=== PATIENT | female | born 1940 | race Caucasian/White ===

== ENCOUNTER 2024-05-28 11:22 | Inpatient (IN) | payer OTHER, SELFPAY ==
--- NOTE | 2024-05-26 10:11 | ED.MUSCINJ ---
HPI-Injury
<Fransico Purvis PA-C - Last Filed: 05/26/24 14:44>
General
Chief Complaint: Musculo-Skeletal Complaint
Time Seen by Provider: 05/26/24 09:55
History of Present Illness-Injury
Initial Injury comments:
Patient is an 84-year-old female with past medical history of atrial fibrillation, history of heart murmur, hypertension, hyperlipidemia, hearing impairment, and history of basal cell skin cancer, here today for evaluation of left knee pain that
began yesterday. Patient states yesterday she had her left lower extremity outstretched and fully extended while watching tennis on a table. She reports attempting to flex her knee in order to stand up and developed sudden onset of pain that has
been noted to be severe. She also reports difficulty with ambulation not able to flex her knee. She denies direct trauma. No fevers. No numbness or tingling. She has had a prior knee replacement approximately 8 years ago without previous issues.
Review of Systems
<Fransico Purvis PA-C - Last Filed: 05/26/24 14:44>
Review of Systems
All Other Systems: ROS reviewed and negative except as documented in HPI and ROS
Phy Exam
<Fransico Purvis PA-C - Last Filed: 05/26/24 14:44>
Physical Exam
Physical Exam:
GENERAL: Alert , in no apparent distress
EYE: pupils equal and reactive
NECK: Supple
NEUROLOGICAL: Alert and oriented, no focal neuro deficits
SKIN: Warm and dry, skin intact.
MUSCULOSKELETAL: No edema, well perfused. There is moderate tenderness to palpation along the entire left knee joint predominantly along the superior and anterior aspect, there is mild swelling, there are no deformities or step-offs appreciated,
there is extremely limited range of motion with inability to flex the left knee in any direction, there is no erythema or warmth, pulses 2+ throughout distally, no tenderness along the calf or thigh, sensation intact throughout
PSYCH: Normal and appropriate interaction.
Injury Course
<Fransico Purvis PA-C - Last Filed: 05/26/24 14:44>
Orders/Labs/Results
Orders:
Orders
05/26/24 09:50
CR Knee - Left 4 Or More View* Urgent
Comment:
Reason For Exam: pain
05/26/24 11:14
Venous Doppler Lwr Ext Left [US Periph Venous LOWER Ext LT] Urgent
Comment:
Reason For Exam: left lower extremity pain
05/26/24 14:08
Case Management Consult ONCE
Case Management Consult: Discharge Planning
Pt Eval And Treat Urgent
Activity Level: Ambulate
05/26/24 14:35
Basic Metabolic Panel Urgent
CRP [C-Reactive Protein] Urgent
Complete Blood Count/With Diff Urgent
ESR [Erythrocyte Sed Rate] Urgent
05/26/24 14:41
Admit/Transfer Patient As Directed
Co-Sign Provider:
Level of Care: Observation services
Assign to:: Medical/Surgical
Physician / Group: Courtney
Diagnosis: Left Knee Pain; Ambulatory Dysfunction
05/26/24 14:43
Code Status As Directed
Resuscitation Status: Full Code
Abnormal Lab Results
05/26/24
14:35
WBC 17.4 H 10^3/uL
(4.8-10.8)
MCH 32.8 H pg
(27.0-31.0)
Abs Immat Gran (auto) 0.1 H 10^3/uL
(0-0.05)
Absolute Neuts (auto) 14.8 H 10^3/uL
(1.4-6.5)
Absolute Lymphs (auto) 1.0 L 10^3/uL
(1.2-3.4)
Absolute Monos (auto) 1.5 H 10^3/uL
(0.1-0.6)
Neutrophils % 84.7 H %
(42.2-75.2)
Lymphocytes % 5.5 L %
(20.5-51.1)
Sodium 134 L mmol/L
(135-145)
Glucose 109 H mg/dl
(70-99)
C-Reactive Protein 203.80 H mg/L
(0.0-10.00)
05/26/24 14:35
05/26/24 14:35
<Maryann De Guzman MD - Last Filed: 05/26/24 15:57>
Orders/Labs/Results
Orders:
Orders
05/26/24 09:50
CR Knee - Left 4 Or More View* Urgent
Comment:
Reason For Exam: pain
05/26/24 11:14
Venous Doppler Lwr Ext Left [US Periph Venous LOWER Ext LT] Urgent
Comment:
Reason For Exam: left lower extremity pain
05/26/24 14:08
Case Management Consult ONCE
Case Management Consult: Discharge Planning
Pt Eval And Treat Urgent
Activity Level: Ambulate
05/26/24 14:35
Basic Metabolic Panel Urgent
CRP [C-Reactive Protein] Urgent
Complete Blood Count/With Diff Urgent
ESR [Erythrocyte Sed Rate] Urgent
05/26/24 14:41
Admit/Transfer Patient As Directed
Co-Sign Provider:
Level of Care: Observation services
Assign to:: Medical/Surgical
Physician / Group: Courtney
Diagnosis: Left Knee Pain; Ambulatory Dysfunction
05/26/24 14:43
Code Status As Directed
Resuscitation Status: Full Code
Abnormal Lab Results
05/26/24
14:35
WBC 17.4 H 10^3/uL
(4.8-10.8)
MCH 32.8 H pg
(27.0-31.0)
Abs Immat Gran (auto) 0.1 H 10^3/uL
(0-0.05)
Absolute Neuts (auto) 14.8 H 10^3/uL
(1.4-6.5)
Absolute Lymphs (auto) 1.0 L 10^3/uL
(1.2-3.4)
Absolute Monos (auto) 1.5 H 10^3/uL
(0.1-0.6)
Neutrophils % 84.7 H %
(42.2-75.2)
Lymphocytes % 5.5 L %
(20.5-51.1)
Sodium 134 L mmol/L
(135-145)
Glucose 109 H mg/dl
(70-99)
C-Reactive Protein 203.80 H mg/L
(0.0-10.00)
05/26/24 14:35
05/26/24 14:35
<Fransico Purvis PA-C - Last Filed: 05/26/24 14:44>
MDM/Problems Addressed
Differential Diagnosis Includes:
Patient is an 84-year-old female with past medical history of atrial fibrillation, history of heart murmur, hypertension, hyperlipidemia, hearing impairment, and history of basal cell skin cancer, here today for evaluation of left knee pain that
began yesterday. Overall, patient appears very well. Physical examination described above. Will begin with x-rays.
05/26/2024 14:10: X-ray negative. Hardware in place. Ultrasound was obtained of the left lower extremity which reveals no evidence of DVT. Patient still in a significant amount of discomfort and not able to ambulate. Given these findings, we
will have care management and PT/OT evaluate patient at bedside. I do not have a high suspicion for septic arthropathy at this time, however, we will obtain screening labs including ESR/CRP. Case was discussed with orthopedics who will evaluate
patient at bedside tomorrow. We will admit patient to the hospitalist team for further management. Case discussed with attending, Dr. De Guzman.
<Fransico Purvis PA-C - Last Filed: 05/26/24 14:44>
*Critical Care Note
Total Time (30-74mins, 75-104mins- exclusive of procedures): Not Applicable
ED Attending Note
<Fransico Purvis PA-C - Last Filed: 05/26/24 14:44>
-
Portions of this chart may have been created with voice recognition software.� Occasional wrong word or��sound alike� substitutions may have occurred due to the inherent limitations of voice recognition software.
<Maryann De Guzman MD - Last Filed: 05/26/24 15:57>
ED Attending Note
Patient seen and examined by attending physician: Yes
I performed the substantive portion of visit, reviewed & personally made and approve the management plan that is documented in note by myself or SANDRINE.: Yes
ED Attending Note:
84-year-old female with complaints of left knee pain that started yesterday when she sat for a period of time watching tennis with her leg fully extended on a chair. Since that time, she has great difficulty ambulating and/or bending left knee due
to pain. She denies fever, chills, redness, trauma, or other complaints. On exam, no specific effusion noted, no redness warmth or skin changes. Patient has extremely limited range of motion due to pain. Tenderness palpation noted mostly in the
popliteal fossa area and less so at the patellar area. X-ray and ultrasound unremarkable. Will check labs although overall suspicion for septic arthritis extremely low. Consult Ortho, likely placement to either rehab or observation.
Abnl labs noted...ortho made aware by MIGEL, if suspicion for septic joint, given this is prosthetic, they will be responsible for arthrocentesis and then subsequent abx admin. hospitliast also updated via tt by MIGEL.
Discharge Plan
Departure
Patient Disposition: Admit
Date of Disposition: 05/26/24
Time of Disposition: 14:27
Admit to: Med/Surg
Admit to doctor: Mia Valdez
Presentation/result/management discussed w/ accepting MD/DO: Hospitalist
Patient with high blood pressure during this ER visit?: No
Consults for patient: Case Management, Physical Therapy and Occupational Therapy
Covid-19: Not Applicable
Discharge Problem:
Acute pain of left knee, Ambulatory dysfunction
Interventions
Interventions:
*Risk Screen - Suicide Last Done: 05/26/24 09:51
*General Assessment Last Done: 05/26/24 09:51
*Neglect/Abuse Screening Last Done: 05/26/24 09:51
ED- Fall Risk Assessment Last Done: 05/26/24 09:51
*ED COVID-19 Vaccine History Last Done: 05/26/24 09:51
ED-Musculoskeletal Assessment Last Done: 05/26/24 09:51
[2024-05-26 13:01] VITALS: BP 117/52
[2024-05-26 14:50] LABS: % Basophils 0.3 % (0-2); % Eosinophils 0.2 % (0-6); % Immature Granulocytes 0.5 % (0-0.5); % Lymphocytes 5.5 % (20.5-51.1); % Monocytes 8.8 % (1.7-9.3); % Neutrophils 84.7 % (42.2-75.2); Absolute Basophils 0.1 10^3/uL (0-0.2); Absolute Immature Granulocytes 0.1 10^3/uL (0-0.05); Absolute Monocytes 1.5 10^3/uL (0.1-0.6); Absolute Neutrophils 14.8 10^3/uL (1.4-6.5); Hematocrit 42.1 % (37.0-47.0); Hemoglobin 14.5 g/dL (12.0-16.0); Mean Corp Hgb Conc. 34.4 g/dL (33.0-37.0); Mean Corpuscular Hgb 32.8 pg (27.0-31.0); Mean Corpuscular Volume 95.2 fL (81.0-99.0); Mean Platelet Volume 10.1 fL (7.4-10.4); Nucleated Red Blood Cells % 0 %; Platelet Count 168 10^3/uL (130-400); Red Blood Cell Count 4.42 10^6/uL (4.20-5.40); Red Cell Dist. Width 12.7 % (11.5-14.5); White Blood Cell Count 17.4 10^3/uL (4.8-10.8)
--- NOTE | 2024-05-26 14:55 | HPS.HSE ---
Family Physician
-
Family Physician: Josse Mariee
Chief Complaint
-
Left Knee Pain
History of Present Illness
Patient is an 84-year-old female past medical history of paroxysmal atrial fibrillation, aortic stenosis, hypertension, and diabetes mellitus who presents with left knee pain. Patient reports she had both lower extremities elevated on stool
yesterday afternoon for about an hour or so while she was watching TV. She notes when she attempted to get up when she bent her knee she developed severe left knee pain. She notes pain has been present since that time. She notes pain is worse
with walking, and bending the knee, to the point that is affecting her ability to ambulate prompting her to come to the emergency department for evaluation. She denies any fevers, sweats or chills. She denies known tick bite.
Medical History
Past Medical History
Past Medical History: Reports Other
Additional Past Medical History:
Paroxysmal Atrial Fibrillation
Mild / Moderate Aortic Stenosis
Essential Hypertension
Hyperlipidemia
Diabetes Mellitus, Type II
Past Surgical History: Reports Other
Additional Past Surgical History:
Cholecystectomy
Appendectomy
Inguinal Hernia Repair
Right Rotator Cuff
Bilateral Knee Replacement
Left Wrist ORIF
Social History
Tobacco: Non-smoker
Alcohol: None
Family History
Family History: Not pertinent
Allergies / Home Medications
Allergies reflects when Allergies were last updated in [facility].
Home Medications with original date entered in [employer]
Allergy/Medication List:
Allergies
Allergy/AdvReac Type Severity Reaction Status Date / Time
codeine [Codeine] AdvReac stomach, Verified 05/26/24 09:54
pain,
nausea &
vomiting
hydrocodone bitartrate AdvReac stomach, Verified 05/26/24 09:54
[From Vicodin] pain,
nausea &
vomiting
morphine AdvReac Nausea / Verified 05/26/24 09:54
Vomiting
oxycodone HCl [From Percocet] AdvReac stomach, Verified 05/26/24 09:54
pain,
nausea &
vomiting
propoxyphene napsylate AdvReac stomach, Verified 05/26/24 09:54
[From Darvocet-N 100] pain,
nausea &
vomiting
tramadol AdvReac stomach Verified 05/26/24 09:54
pain,
nause and
vomiting
Home Medications
hjpwncwc-iih-llknd acid 0.4 mg-lycopene 300 mcg-lutein 250 mcg tablet (Adults 50 Plus) 1 ea PO DAILY 10/09/17
acetaminophen 325 mg tablet 650 mg (2 x 325 mg) PO Q4HPRN PRN mild to moderate pain #0 tabs 10/10/17
ibuprofen 200 mg tablet 400 - 600 mg (2 - 3 x 200 mg) PO Q6HPRN PRN mild to moderate pain #0 tabs 10/10/17
metoprolol succinate 25 mg tablet,extended release 24 hr 25 mg PO BID 01/30/22
rivaroxaban 20 mg tablet (Xarelto) 20 mg PO DAILY 01/30/22
calcium polycarbophil 625 mg tablet (Fiber-Tabs) 625 mg PO DAILY 02/02/22
hydrocortisone 1 % topical cream 1 applic topical PRN PRN rash 02/02/22
losartan 25 mg tablet 50 mg PO BID 02/02/22
Review of Systems
-
A 12 point ROS was completed and negative except as noted: Yes
Constitutional: Denies Fever or Chills
Respiratory: Denies Cough or Trouble Breathing
Abdomen/GI: Denies Abdominal Pain, Nausea, Vomiting, Diarrhea or Constipated
Physical Exam
Vital Signs
Vital Signs
Temp Pulse Resp BP Pulse Ox
98.4 F 75 16 117/52 94
05/26/24 09:16 05/26/24 13:01 05/26/24 09:16 05/26/24 13:01 05/26/24 13:01
Physical Exam
General: Comfortable and Conversant
HEENT: Anicteric and Moist mucous membranes
Respiratory: Clear and Non Labored Respirations
Cardiac: S1/S2, Regular Rhythm and Murmur (2/6 systolic murmur heard best at right upper sternal border)
GI: Soft and Non Tender
Rectal: Deferred by Provider
Musculoskeletal: No Clubbing, No Cyanosis and Other (Edema noted lateral left knee with some tenderness to palpation along the lateral aspect; No erythema or increased warmth to touch)
Skin: Warm and Dry
Neuro: Awake, Alert, Oriented and Nonfocal/grossly intact
Psych: Calm
Laboratory Results
-
Labs are pending
Data Reviewed
-
Diagnostic Radiology: Report Reviewed by me
Ultrasound: Report Reviewed by me
Lab Data: Labs Reviewed by me
Impression/Plan
-
Ambulatory Dysfunction secondary to Left Knee Pain
-Consult Orthopedics
-Consult PT/OT
-Add Capsaicin cream to Left Knee
-Continue Tylenol PRN pain
-Check Left Knee CT
Paroxysmal Atrial Fibrillation
-Continue Xarelto for anticoagulation
-Continue metoprolol for rate control
Essential Hypertension
-Continue losartan with hold parameters
Diabetes Mellitus, Type II
-Continue Jardiance
-Monitor sugars and continue coverage insulin
DVT proph: Xarelto
Code Status: Full Code
[2024-05-26 15:09] LABS: Blood Urea Nitrogen 15 mg/dl (7-17); Calcium 9.3 mg/dl (8.4-10.2); Carbon Dioxide 26 mmol/L (22-30); Chloride 102 mmol/L (98-107); Glucose 109 mg/dl (70-99); Potassium 4.4 mmol/L (3.5-5.1); Sodium 134 mmol/L (135-145); eGFR > 60.00
--- NOTE | 2024-05-26 15:22 | W.PN.UPDATE ---
Update Note
Progress Note Update
HPI: 84-year-old female past medical history of paroxysmal atrial fibrillation, aortic stenosis, hypertension, diabetes mellitus who presented with left knee pain. Patient reported she had both lower extremities elevated on stool yesterday afternoon
for about an hour or so while she was watching TV. She noted when she attempted to get up when she bent her knee she developed severe left knee pain. She noted pain has been present since that time. She notes pain is worse with walking, and
bending the knee, to the point that is affecting her ability to ambulate prompting her to come to the emergency department for evaluation. She denies any fevers, sweats or chills. She denies known tick bite.
A/P:
# Ambulatory Dysfunction secondary to Left Knee Pain
L knee XR unrevealing: Left knee arthroplasty in position. No acute osseous abnormality.
Check Left Knee CT
Continue Tylenol PRN pain
Add Capsaicin cream to Left Knee
Consult Orthopedics
Consult PT/OT
# Paroxysmal Atrial Fibrillation
Continue Xarelto for anticoagulation
Continue metoprolol for rate control
# Essential Hypertension
Continue losartan with hold parameters
# Diabetes Mellitus, Type II
Continue Jardiance
Monitor sugars and continue coverage insulin
# Aortic stenosis, stable
DVT proph: Xarelto
Code Status: Full Code
[2024-05-26 15:35] LABS: Erythrocyte Sed Rate 15 mm/hour (0-20)
--- NOTE | 2024-05-26 15:57 | CM ---
CM reviewed chart. Introduced self and role. Patent's son and also at bedside. Patient here for left knee pain. She has had this knee operated on twice. She stated her right knee has been operated on once.
She owns a rolling walker and stair glide. She is in severe pain and ortho will not be able see her until tomorrow, so she has been admitted for observation. Patient has [place]. Medicare Obs letter explained to patient and she signed it.
She lives at home with her spouse, she has support from her son. She has a daughter in [place] who is paralyzed from the neck down and she cares for him.
Dr. Grant and Dr. Munoz have operated on her knees. Her PCP is Dr. Thai Mariee. She uses the [facility] in [place]. She lives in a multi-level home. She usually is independent and drives. Currently she has been needing to use the bedpan, because of
difficulty walking.
Her or son will provide transportation once she is discharged. She denies any +SDOHs. She is able to afford food, medications, housing, utilities, clothing. 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
She is agreed to home health or going to STR. She has used [facility] in the past and would like to use them again, if HHC is recommended in PT tomorrow. She chose [facility] as her first choice for STR.
CM available for further needs. Will continue monitoring case and watch for updated PT notes.
DISCHARGE DISPOSITION:
PT/OT HHC vs. STR
PT came to room to evaluate patient.
[2024-05-26 16:26] VITALS: BP 158/75
--- NOTE | 2024-05-26 16:44 | CON.MD ---
Consultation - Medical
-
Patient seen and examined
Acute onset of left knee pain after having the leg propped up while watching TV
There is swelling in the left knee with no erythema or warmth
X-ray negative for fracture or gross prosthesis abnormalities
U/S negative for DVT
Awaiting for the CT scan.
Will follow
Full consult dictated
[2024-05-26 16:52] LABS: Glucose - Point of Care 111 mg/dl (70-99)
[2024-05-26] MEDS: ZOSTRIX 0.025% CREAM 1 APPLIC TOPICAL ×2 (17:32→21:24)
--- NOTE | 2024-05-26 17:38 | PTCARENOTE ---
Pt received from the ER into room 434-2. Pt is Ox3 and appropriate, mostly complaining of pain in the L knee. Medicated cream applied, admission assessment completed. Call jones within reach. Pt makes needs known.
[2024-05-26] MEDS: TOPROL XL 25 MG PO (20:18)
[2024-05-26] MEDS: TYLENOL 650 MG PO (20:19)
[2024-05-26] MEDS: COZAAR 50 MG PO (20:19)
[2024-05-26] MEDS: MELATONIN 10 MG PO (21:24)
[2024-05-26 21:35] LABS: Glucose - Point of Care 135 mg/dl (70-99)
[2024-05-26 22:00] VITALS: BMI 36.3
[2024-05-26 23:28] VITALS: BP 123/48
[2024-05-27 07:34] VITALS: BP 153/66
[2024-05-27 07:44] LABS: Glucose - Point of Care 96 mg/dl (70-99)
[2024-05-27 07:45] LABS: % Basophils 0.3 % (0-2); % Eosinophils 0.1 % (0-6); % Immature Granulocytes 0.5 % (0-0.5); % Lymphocytes 8.8 % (20.5-51.1); % Monocytes 9.5 % (1.7-9.3); % Neutrophils 80.8 % (42.2-75.2); Absolute Immature Granulocytes 0.1 10^3/uL (0-0.05); Absolute Lymphocytes 1.3 10^3/uL (1.2-3.4); Absolute Monocytes 1.4 10^3/uL (0.1-0.6); Absolute Neutrophils 11.8 10^3/uL (1.4-6.5); Hematocrit 38.7 % (37.0-47.0); Hemoglobin 13.3 g/dL (12.0-16.0); Mean Corp Hgb Conc. 34.4 g/dL (33.0-37.0); Mean Corpuscular Hgb 33.6 pg (27.0-31.0); Mean Corpuscular Volume 97.7 fL (81.0-99.0); Mean Platelet Volume 10.3 fL (7.4-10.4); Nucleated Red Blood Cells % 0 %; Platelet Count 149 10^3/uL (130-400); Red Blood Cell Count 3.96 10^6/uL (4.20-5.40); Red Cell Dist. Width 12.7 % (11.5-14.5); White Blood Cell Count 14.6 10^3/uL (4.8-10.8)
--- NOTE | 2024-05-27 07:58 | W.PN.HOSP.TC ---
Today's Communication/Plan
-
see A/P
Assessment / Plan
Assessment / Plan
HPI: 84-year-old female past medical history of paroxysmal atrial fibrillation, aortic stenosis, hypertension, diabetes mellitus who presented with left knee pain. Patient reported she had both lower extremities elevated on stool yesterday afternoon
for about an hour or so while she was watching TV. She noted when she attempted to get up when she bent her knee she developed severe left knee pain. She noted pain has been present since that time. She notes pain is worse with walking, and
bending the knee, to the point that is affecting her ability to ambulate prompting her to come to the emergency department for evaluation. She denies any fevers, sweats or chills. She denies known tick bite.
A/P:
# Ambulatory Dysfunction secondary to Left Knee Pain
L knee XR unrevealing: Left knee arthroplasty in position. No acute osseous abnormality.
Check Left Knee CT
Continue Tylenol PRN pain, Capsaicin cream to Left Knee
Orthopedics on board
PT/OT eval
# Leucocytosis
Noted elevated CRP at 200, but ESR at 15; check repeat CRP and ESR
Check blood cultures
pt admitted to 'cold like symptoms' the week prior, check COVID and CXR
pt denies to urinary symptoms
d/w ortho, prefer to avoid arthrocentesis given she has prosthetic joint.
# Paroxysmal Atrial Fibrillation
Continue Xarelto for anticoagulation
Continue metoprolol for rate control
# Essential Hypertension
Continue losartan with hold parameters
# Diabetes Mellitus, Type II
Continue Jardiance
Monitor sugars and continue coverage insulin
# Aortic stenosis, stable
DVT proph: Xarelto
Code Status: Full Code
dw ortho
Anticipated Discharge: 24 - 48 hours
Subjective/Interval History
-
Date of Service: May 27, 2024
Objective Data
-
Labs:
Laboratory Results
05/27/24
07:28
WBC Pending
Hgb Pending
Hct Pending
Plt Count Pending
Sodium Pending
Potassium Pending
Chloride Pending
Carbon Dioxide Pending
BUN Pending
Creatinine Pending
Glucose Pending
Calcium Pending
Vital Signs:
Vital Signs
Temp Pulse Resp BP Pulse Ox
37.6 C 79 19 153/66 98
05/27/24 07:34 05/27/24 07:34 05/27/24 07:34 05/27/24 07:34 05/27/24 07:34
I&O
05/26/24 05/27/24 05/28/24
06:59 06:59 06:59
Intake Total 120 / 120
Output Total 700 / 700
Balance -580 / -580
--- NOTE | 2024-05-27 08:03 | W.PN.ORTHO ---
Today's Communication / Plan
-
84yo with left knee pain s/p left revision TKA [place] [address] Mena
-Awaiting CT scan
-Continue with pain management as needed
-May be WBAT and perform ROM as tolerated
-Will continue to follow
Assessment
.
Distal Motor Intact: Yes
Dressing:
Clean, dry and intact.
Plan
.
Activity:
Out of bed.
PT/OT
Subjective
.
.:
Patient resting comfortably in bed this morning. She continues with pain in the left knee. She reports she still has some swelling. She has not yet gotten her CT scan
Vital Signs and Labs
.
Vital Signs and Labs:
Temp Pulse Resp BP Pulse Ox
99.6 F 79 19 153/66 98
05/27/24 07:34 05/27/24 07:34 05/27/24 07:34 05/27/24 07:34 05/27/24 07:34
Physical Exam
-
LLE: well healed surgical scar to anterior knee. +edema. +TTP generally about the knee. no erythema. Limited ROM due to pain. Calf soft and nontender. NVI distally
[2024-05-27 08:14] LABS: Blood Urea Nitrogen 14 mg/dl (7-17); Calcium 8.9 mg/dl (8.4-10.2); Carbon Dioxide 23 mmol/L (22-30); Chloride 103 mmol/L (98-107); Estimated Creatinine Clearance 59 ml/min; Glucose 105 mg/dl (70-99); Potassium 4.6 mmol/L (3.5-5.1); Sodium 134 mmol/L (135-145); eGFR > 60.00
[2024-05-27 08:15] VITALS: BMI 36.3
[2024-05-27] MEDS: TOPROL XL 25 MG PO ×2 (08:18→20:08)
[2024-05-27] MEDS: FIBERCON 625 MG PO (08:18)
[2024-05-27] MEDS: JARDIANCE 10 MG PO (08:18)
[2024-05-27] MEDS: COZAAR 50 MG PO ×2 (08:18→20:08)
[2024-05-27] MEDS: ZOSTRIX 0.025% CREAM 1 APPLIC TOPICAL ×4 (08:19→21:20)
[2024-05-27] MEDS: XARELTO 20 MG PO (09:38)
[2024-05-27 11:30] VITALS: BP 95/56
[2024-05-27 11:37] LABS: C-Reactive Protein > 270.00 mg/L (0.0-10.00)
[2024-05-27 11:41] VITALS: BP 95/58; PULSE 81
[2024-05-27 11:55] LABS: Glucose - Point of Care 136 mg/dl (70-99)
[2024-05-27] MEDS: NSS 250 IV (11:57)
[2024-05-27] MEDS: TYLENOL 650 MG PO (12:00)
[2024-05-27 12:25] LABS: Erythrocyte Sed Rate 26 mm/hour (0-20)
[2024-05-27 12:51] LABS: COVID-19 Antigen Negative (Negative)
--- NOTE | 2024-05-27 14:14 | W.PN.UPDATE ---
Update Note
Progress Note Update
Patient continues with left knee pain and swelling.
The CT scan shows effusion, no sings of prosthesis loosening or fracture
We agreed to proceed with left knee aspiration as the ESR and CRP are even more elevated today
Left knee aspiration was performed under sterile conditions and 40cc or thick yellowish fluid was evacuated
Fluid was sent for crystal analysis, cell count, gram stain and cultures
Patient understands that if there is infection, she will need surgical treatment
[2024-05-27 15:30] VITALS: BP 129/68
--- NOTE | 2024-05-27 15:35 | CM ---
Chart reviewed and will await updated progress with physical therapy, patient may benefit from skilled placement.
Plan; To follow with patient progress to confirm discharge planning needs for patient.
[2024-05-27 16:19] LABS: Body Fluid Mononuclear 11.6 %; Body Fluid Polymorphonuclear 88.4 %
[2024-05-27 16:20] LABS: Glucose - Point of Care 106 mg/dl (70-99)
[2024-05-27 16:54] LABS: Body Fluid WBC 54300 /CUMM
[2024-05-27 17:09] LABS: Body Fluid Second Tech JKH
--- NOTE | 2024-05-27 19:54 | PHA.VAN.IN ---
Assessment
- Assessment
Renal Function: Appears similar to baseline
Concomitant Antimicrobials: CEFEPIME
- Previous Dosing Experience
Previous Regimen: NONE
AUC Dosing Plan
- Dosing Variables
Dosing Weight (kg): 95.8
Dosing CrCl (ml/min): 59
Vd coefficient (L/kg): 0.6
- Empiric Dosing
Initial / Loading Dose: 2GM
Maintenance Regimen: 1500MG IV Q24H
Estimated AUC (mcg*h/mL): 509
Estimated Peak (mcg*h/mL): 36.1
Estimated Trough (mcg/ml): 10.9
Estimated Half Life (H): 13
Pharmacokinetics Vancomycin I
- -
Patient Age: 84
Patient Sex: Female
Vancomycin Day #: 1
Indication: Bone And Joint
Requesting Provider: JACINTA
Height / Weight:
Height 5 ft 4 in
Actual Weight 95.85 kg
Pertinent Past Medical History: PROTESTIC JOINT
- Vital Signs / Lab Results
Temp Pulse Resp BP Pulse Ox
98.2 F 78 21 129/68 94
05/27/24 15:30 05/27/24 15:30 05/27/24 15:30 05/27/24 15:30 05/27/24 15:30
Lab Results - Hematology
05/26/24 05/27/24
14:35 07:28
WBC 17.4 H 14.6 H
Lab Results - Chemistry
05/26/24 05/27/24
14:35 07:28
BUN 15 14
Creatinine 0.8 0.8
Estimated Creat Clear 59
Microbiology Results
05/27/24 13:14 Gram Stain - Preliminary
Joint Fluid
[2024-05-27 20:00] VITALS: BP 135/63
[2024-05-27] MEDS: STERILE WATER FOR INJECTION 10 ML IV (20:07)
[2024-05-27] MEDS: VANCOCIN 540 MG IV (20:07)
[2024-05-27] MEDS: MAXIPIME 1000 MG IV (20:08)
[2024-05-27 21:17] LABS: Glucose - Point of Care 142 mg/dl (70-99)
[2024-05-27] MEDS: MELATONIN 10 MG PO (21:20)
[2024-05-27 22:50] VITALS: BP 138/56
[2024-05-28 05:32] LABS: Glucose - Point of Care 109 mg/dl (70-99)
[2024-05-28] MEDS: VANCOCIN 300 ML IV (06:07)
[2024-05-28] MEDS: VANCOCIN 300 MG IV (06:07)
[2024-05-28 07:02] LABS: % Basophils 0.3 % (0-2); % Eosinophils 0.8 % (0-6); % Immature Granulocytes 0.5 % (0-0.5); % Lymphocytes 12.3 % (20.5-51.1); % Monocytes 9.8 % (1.7-9.3); % Neutrophils 76.3 % (42.2-75.2); Absolute Eosinophils 0.1 10^3/uL (0-0.7); Absolute Immature Granulocytes 0.1 10^3/uL (0-0.05); Absolute Lymphocytes 1.2 10^3/uL (1.2-3.4); Absolute Neutrophils 7.4 10^3/uL (1.4-6.5); Hematocrit 35.6 % (37.0-47.0); Hemoglobin 12.1 g/dL (12.0-16.0); Mean Corpuscular Hgb 32.6 pg (27.0-31.0); Mean Platelet Volume 10.5 fL (7.4-10.4); Nucleated Red Blood Cells % 0 %; Platelet Count 145 10^3/uL (130-400); Red Blood Cell Count 3.71 10^6/uL (4.20-5.40); Red Cell Dist. Width 12.7 % (11.5-14.5); White Blood Cell Count 9.7 10^3/uL (4.8-10.8)
[2024-05-28 07:30] VITALS: BP 134/59
--- NOTE | 2024-05-28 07:48 | W.PN.UPDATE ---
Update Note
Progress Note Update
Ms. Richmond is resting comfortably in bed this morning. She endorses pain and stiffness about the knee, as well as some mild sciatica. The aspiration of her knee was concerning for prosthetic joint infection. Gram stain reveals many WBC, but no
organisms. Culture pending. We plan to proceed with OR today for revision left total knee arthroplasty with irrigation and debridement and poly exchange under the direction of Dr. Monson. The risks, benefits, alternatives, recovery process and
potential complications were discussed in detail. All patient questions were answered. Surgical and blood consents are signed and in the patients chart.
--NPO until surgery.
--Patient currently on vanco.
--Patient may be WBAT until surgery.
--Antibiotics and irrigation ordered to OR.
-T+S ordered.
[2024-05-28] MEDS: XARELTO 20 MG PO (07:50)
[2024-05-28] MEDS: JARDIANCE 10 MG PO (07:50)
[2024-05-28] MEDS: COZAAR 50 MG PO ×2 (07:50→20:34)
[2024-05-28] MEDS: TOPROL XL 25 MG PO ×2 (07:50→20:34)
[2024-05-28] MEDS: FIBERCON 625 MG PO (07:50)
[2024-05-28] MEDS: ZOSTRIX 0.025% CREAM 1 APPLIC TOPICAL (07:51)
[2024-05-28] MEDS: STERILE WATER FOR INJECTION 10 ML IV ×2 (07:51→20:34)
[2024-05-28] MEDS: MAXIPIME 1000 MG IV ×2 (07:51→20:34)
[2024-05-28 08:06] LABS: Blood Urea Nitrogen 18 mg/dl (7-17); Calcium 8.3 mg/dl (8.4-10.2); Carbon Dioxide 22 mmol/L (22-30); Chloride 105 mmol/L (98-107); Estimated Creatinine Clearance 59 ml/min; Glucose 98 mg/dl (70-99); Potassium 4.1 mmol/L (3.5-5.1); Sodium 134 mmol/L (135-145); eGFR > 60.00
--- NOTE | 2024-05-28 09:00 | PHA.VAN.FU ---
Vancomycin Assessment / Plan
- Assessment
Renal Function: Stable
WBC's are: WNL
In the past 24 hrs, patient has been: Afebrile
Concomitant Antimicrobials: cefepime
- Dosing Plan
Continue: Vanc 1500mg Q24H
- Monitoring Plan
No level(s) ordered at this time: considr levels in next few days
- Follow Up
Pharmacy will continue to follow.
Vancomycin Follow UP
- -
Patient Age: 84
Patient Sex: Female
Vancomycin Day #: 2
Indication: Bone And Joint
Requesting Provider: Dr. Valdez
Pertinent Antimicrobial Allergies:
no pertinent antibiotic allergies
Height / Weight:
Height 5 ft 4 in
Actual Weight 95.85 kg
Pertinent Past Medical History: BMI ~36, DM 2, L TKA
- Vital Signs / Lab Results
Temp Pulse Resp BP Pulse Ox
98.2 F 79 19 134/59 97
05/28/24 07:30 05/28/24 07:30 05/28/24 07:30 05/28/24 07:30 05/28/24 07:30
Lab Results - Hematology
05/26/24 05/27/24 05/28/24
14:35 07:28 06:36
WBC 17.4 H 14.6 H 9.7
Lab Results - Chemistry
05/26/24 05/27/24 05/28/24
14:35 07:28 06:36
BUN 15 14 18 H
Creatinine 0.8 0.8 0.8
Estimated Creat Clear 59 59
Microbiology Results
05/27/24 13:14 Gram Stain - Preliminary
Joint Fluid
--- NOTE | 2024-05-28 10:32 | CON.ID ---
Consultation
-
Date/Time Consultation Requested: 05/27/2024 1324
Date/Time Consultation Performed: 05/28/2024 1009
Requesting Provider: Dr. Valdez
Performing Provider: Dr. Sen
Reason for Consultation: Left knee pain
Chief Complaint / Past History
History of Present Illness
Radha Richmond is an 84-year-old female being evaluated at the request of Dr. Valdez in regards to left knee pain. History is obtained from chart review, along with patient interview. Additional history was obtained from the patient's who was at
the bedside.
The patient has a history of multiple knee replacements (left knee x 2/right knee x 1) and was otherwise in her usual state of health until 3 days ago. She reports she was sitting on the couch with her leg elevated watching tennis. There was no
knee pain at this point in time, but when she went to get up from sitting in the recliner she had the acute onset of severe knee discomfort and pain, along with a very difficult time ambulating. She denied any fevers or chills. She denied any
preceding erythema or discomfort in the knee.
The next day, her son came to the house and helped her up out of the house and she was brought to the emergency room for further evaluation. Initial workup revealed a leukocytosis, with a normal sed rate but markedly elevated CRP. Imaging did not
reveal any abnormalities. The patient underwent arthrocentesis yesterday, with significant white cells noted in the sample. Infectious Diseases is now asked to comment upon further antimicrobial therapy. The patient is tentatively for the OR
later today.
The patient reports no significant tick exposure. She denies any preceding erythema or tenderness or significant swelling of the knee area.
Past History
Additional Past Medical History:
Paroxysmal A-fib
Aortic stenosis
HTN
Dyslipidemia
DM
Additional Past Surgical History:
Cholecystectomy
Appendectomy
Inguinal hernia repair
Right rotator cuff surgery
Bilateral knee replacement
Left wrist surgery
Allergy History:
codeine [Codeine] Adverse Reaction (Verified 05/26/24 09:54)
stomach, pain, nausea & vomiting
hydrocodone bitartrate [From Vicodin] Adverse Reaction (Verified 05/26/24 09:54)
stomach, pain, nausea & vomiting
morphine Adverse Reaction (Verified 05/26/24 09:54)
Nausea / Vomiting
oxycodone HCl [From Percocet] Adverse Reaction (Verified 05/26/24 09:54)
stomach, pain, nausea & vomiting
propoxyphene napsylate [From Darvocet-N 100] Adverse Reaction (Verified 05/26/24 09:54)
stomach, pain, nausea & vomiting
tramadol Adverse Reaction (Verified 05/26/24 09:54)
stomach pain, nause and vomiting
Medications Reviewed: Yes
Current Antibiotics:
Vancomycin
Cefepime
Social History
Tobacco: Non-Smoker
Alcohol: None
Drug: None
Personal:
Living: With Family
Employment: Retired
Family History
Family History: Not Pertinent
Review of Systems
Vital Signs
Temp Pulse Resp BP Pulse Ox
98.2 F 79 19 134/59 97
05/28/24 07:30 05/28/24 07:30 05/28/24 07:30 05/28/24 07:30 05/28/24 07:30
Physical Exam
Physical Exam
Constitutional: No Acute Distress, Well Developed, Comfortable and Non-toxic
Head: Normocephalic
Eyes: Pupils Equal, Pupils Round, No Conjunctival Hemorrhage and Sclera Anicteric
Oral: No Thrush and No Ulcers
Cardiovascular: Regular Rate, S1/S2 and Murmur; Negative S3/S4
Pulmonary: Clear; Negative Wheezes, Rales or Rhonchi
Gastrointestinal: Soft, Non Tender, Non Distended, Normal Bowel Sounds, No Rebound and No Guarding
Genito-Urinary: Negative De Guzman
Extremities: Edema and Pulses; Negative Cyanosis, Erythema or Venous Insufficiency
Musculoskeletal: Other (left knee pain with palpation)
Skin: Warm and Dry; Negative Rash or Jaundice
Wound: None
Neurological: Awake, Alert and Oriented
Psychological: Calm
.
Lab / Diagnostic Study Results
05/28/24 06:36
05/28/24 06:36
Abs Immat Gran (auto) 0.1 10^3/uL (0-0.05) H 05/28/24 06:36
Absolute Neuts (auto) 7.4 10^3/uL (1.4-6.5) H 05/28/24 06:36
Absolute Lymphs (auto) 1.2 10^3/uL (1.2-3.4) 05/28/24 06:36
Absolute Monos (auto) 1.0 10^3/uL (0.1-0.6) H 05/28/24 06:36
Absolute Basos (auto) 0.0 10^3/uL (0-0.2) 05/28/24 06:36
Immature Gran % 0.5 % (0-0.5) 05/28/24 06:36
Neutrophils % 76.3 % (42.2-75.2) H 05/28/24 06:36
Lymphocytes % 12.3 % (20.5-51.1) L 05/28/24 06:36
Monocytes % 9.8 % (1.7-9.3) H 05/28/24 06:36
Eosinophils % 0.8 % (0-6) 05/28/24 06:36
Basophils % 0.3 % (0-2) 05/28/24 06:36
ESR 26 mm/hour (0-20) H 05/27/24 07:28
C-Reactive Protein > 270.00 mg/L (0.0-10.00) H 05/27/24 07:28
Microbiology Results
Micro:
05/27/24 09:33 Blood Culture - Preliminary
Blood/Venous No Growth in 24 hours- Final report to follow
05/27/24 13:14 Body Fluid Culture - Pending
Joint Fluid Gram Stain - Preliminary
05/27/24 10:23 Blood Culture - Pending
Blood/Venous
Imaging:
05/27/24 CT left lower extremity with contrast: A left total knee replacement with significant streak artifact was noted. There is a moderate to large joint effusion with slightly thickened enhancing peripheral margin.
05/26/2024 Duplex ultrasound left lower extremity: No evidence of DVT
05/26/2024 X-ray left knee: Left knee arthroplasty seen in position. No cortical fracture, dislocation or focal bony destructive process noted. Film personally viewed.
Assessment / Plan
Acute left knee pain with effusion
Significant synovial white cells
Leukocytosis; improved
Marked CRP elevation without concomitant ESR elevation.
Paroxysmal A-fib
Aortic stenosis
HTN
Dyslipidemia
DM
Recommendations:
History somewhat atypical for infectious process given the acute onset pain over a matter of minutes, although significant white cells noted in synovial fluid is of concern.
Patient tentatively for OR for washout of the joint later today.
Continue empiric antibiotics for the present.
Await further cultures to guide antimicrobial selection and potential de-escalation.
[2024-05-28 11:04] LABS: Glycohemoglobin (HgbA1c) 5.6 % (4.0-5.6)
--- NOTE | 2024-05-28 11:29 | W.PN.HOSP.TC ---
Today's Communication/Plan
-
see A/P
Assessment / Plan
Assessment / Plan
HPI: 84-year-old female past medical history of paroxysmal atrial fibrillation, aortic stenosis, hypertension, diabetes mellitus who presented with left knee pain. Patient reported she had both lower extremities elevated on stool yesterday afternoon
for about an hour or so while she was watching TV. She noted when she attempted to get up when she bent her knee she developed severe left knee pain. She noted pain has been present since that time. She notes pain is worse with walking, and
bending the knee, to the point that is affecting her ability to ambulate prompting her to come to the emergency department for evaluation. She denies any fevers, sweats or chills. She denies known tick bite.
A/P:
# Ambulatory Dysfunction secondary to Left Knee Pain
L knee XR unrevealing: Left knee arthroplasty in position. No acute osseous abnormality.
Left Knee CT noted Moderate to large joint effusion with slightly thickened enhancing peripheral margin.
s/p L knee tap, WBC > 50 k
Follow wound culture
Of note, blood cultures negative
Cont empiric cefepime/vancomycin
For L knee wash out per ortho
Continue Tylenol PRN for pain control
Orthopedics on board
ID on board
PT/OT eval
# Leucocytosis, resolved
Elevated CRP > 270 noted
blood cultures negative
pt admitted to 'cold like symptoms' the week prior, COVID negative, CXR NAD
pt denies to urinary symptoms
# Paroxysmal Atrial Fibrillation
Continue Xarelto for anticoagulation
Continue metoprolol for rate control
# Essential Hypertension
Continue losartan with hold parameters
# Diabetes Mellitus, Type II
Continue Jardiance
Monitor sugars and continue coverage insulin
# Aortic stenosis, stable
DVT proph: Xarelto
Code Status: Full Code
DW ortho
DW and son at bedside
Anticipated Discharge: > 48 hours
Subjective/Interval History
-
Date of Service: May 28, 2024
Objective Data
-
Labs:
Laboratory Results
05/28/24
06:36
WBC 9.7
Hgb 12.1
Hct 35.6 L
Plt Count 145
Sodium 134 L
Potassium 4.1
Chloride 105
Carbon Dioxide 22
BUN 18 H
Creatinine 0.8
Glucose 98
Calcium 8.3 L
Vital Signs:
Vital Signs
Temp Pulse Resp BP Pulse Ox
36.8 C 79 19 134/59 97
05/28/24 07:30 05/28/24 07:30 05/28/24 07:30 05/28/24 07:30 05/28/24 07:30
I&O
05/27/24 05/28/24 05/29/24
06:59 06:59 06:59
Intake Total 120 / 120 360 / 360
Output Total 700 / 700 1600 / 1600
Balance -580 / -580 -1240 / -1240
Review of Systems
-
Musculoskeletal: Reports Joint Pain (L knee pain and swelling )
Physical Exam
-
General: Well Developed, Well Nourished, No Apparent Distress, Comfortable, Conversant and Obese; Negative Respiratory Distress
HEENT: Normocephalic, Atraumatic, Nose Appears Normal and Ears Appear Normal; Negative Oxygen
Respiratory: Clear to Auscultation and Non Labored Respirations; Negative Accessory Resp Muscle Use
Cardiac: Regular Rhythm and S1/S2
GI: Soft, Nontender, Nondistended and Normal Bowel Sounds
Musculoskeletal: Other (L knee swelling )
Skin: Warm and Dry
Neuro: Awake, Alert, Oriented and AO x 3
Psych: Calm and Intact Judgement/Insight
Data Reviewed
-
Labs: Labs Reviewed by me
[2024-05-28 11:45] LABS: Glucose - Point of Care 88 mg/dl (70-99)
[2024-05-28 13:40] LABS: Glucose - Point of Care 85 mg/dl (70-99)
[2024-05-28 15:56] VITALS: BP 134/74
[2024-05-28 16:14] LABS: Glucose - Point of Care 125 mg/dl (70-99)
[2024-05-28 20:29] VITALS: BP 116/94
[2024-05-28 21:08] LABS: Glucose - Point of Care 144 mg/dl (70-99)
[2024-05-28] MEDS: MELATONIN 10 MG PO (21:19)
[2024-05-28 23:00] VITALS: BP 139/51
[2024-05-29] VITALS (14 sets, daily range): BP systolic 112–163; BP diastolic 48–100
[2024-05-29] MEDS: VANCOCIN 300 MG IV (05:51)
[2024-05-29] MEDS: VANCOCIN 300 ML IV (05:51)
[2024-05-29 06:17] LABS: Glucose - Point of Care 125 mg/dl (70-99)
--- NOTE | 2024-05-29 07:41 | W.PN.UPDATE ---
Update Note
Progress Note Update
Patient unfortunately has left knee prosthetic joint infection which is going to require irrigation with debridement and polyethylene exchange today. She will remain n.p.o. for now. OR consent is on chart.
[2024-05-29 08:12] LABS: % Basophils 0.4 % (0-2); % Eosinophils 2.5 % (0-6); % Immature Granulocytes 0.5 % (0-0.5); % Lymphocytes 13.1 % (20.5-51.1); % Monocytes 13.6 % (1.7-9.3); % Neutrophils 69.9 % (42.2-75.2); Absolute Eosinophils 0.2 10^3/uL (0-0.7); Absolute Neutrophils 5.3 10^3/uL (1.4-6.5); Hematocrit 37.2 % (37.0-47.0); Hemoglobin 12.8 g/dL (12.0-16.0); Mean Corp Hgb Conc. 34.4 g/dL (33.0-37.0); Mean Corpuscular Hgb 33.2 pg (27.0-31.0); Mean Corpuscular Volume 96.6 fL (81.0-99.0); Mean Platelet Volume 10.3 fL (7.4-10.4); Nucleated Red Blood Cells % 0 %; Platelet Count 169 10^3/uL (130-400); Red Blood Cell Count 3.85 10^6/uL (4.20-5.40); Red Cell Dist. Width 12.5 % (11.5-14.5); White Blood Cell Count 7.6 10^3/uL (4.8-10.8)
[2024-05-29 08:25] LABS: Blood Urea Nitrogen 17 mg/dl (7-17); Calcium 8.5 mg/dl (8.4-10.2); Carbon Dioxide 23 mmol/L (22-30); Chloride 104 mmol/L (98-107); Estimated Creatinine Clearance 59 ml/min; Glucose 104 mg/dl (70-99); Sodium 134 mmol/L (135-145); eGFR > 60.00
--- NOTE | 2024-05-29 08:45 | W.PN.HOSP.TC ---
Today's Communication/Plan
-
see A/P
Assessment / Plan
Assessment / Plan
HPI: 84-year-old female past medical history of paroxysmal atrial fibrillation, aortic stenosis, hypertension, diabetes mellitus who presented with left knee pain. Patient reported she had both lower extremities elevated on stool yesterday afternoon
for about an hour or so while she was watching TV. She noted when she attempted to get up when she bent her knee she developed severe left knee pain. She noted pain has been present since that time. She notes pain is worse with walking, and
bending the knee, to the point that is affecting her ability to ambulate prompting her to come to the emergency department for evaluation. She denies any fevers, sweats or chills. She denies known tick bite.
A/P:
# Ambulatory Dysfunction secondary to Left Knee Pain
# Sepsis POA due to septic arthritis L knee
L knee XR unrevealing: Left knee arthroplasty in position. No acute osseous abnormality.
Left Knee CT noted Moderate to large joint effusion with slightly thickened enhancing peripheral margin.
s/p L knee tap, WBC > 50 k
wound culture growing Strep , follow S/S
Of note, blood cultures negative
Cont empiric cefepime/vancomycin
For L knee wash out per ortho
Continue Tylenol PRN for pain control
Orthopedics on board
ID on board
PT/OT eval
# Paroxysmal Atrial Fibrillation
Continue Xarelto for anticoagulation
Continue metoprolol for rate control
# Essential Hypertension
Continue losartan with hold parameters
# Diabetes Mellitus, Type II
Continue Jardiance
Monitor sugars and continue coverage insulin
# Aortic stenosis, stable
DVT proph: LAB REP Xarelto on hold
Code Status: Full Code
Anticipated Discharge: > 48 hours
Subjective/Interval History
-
Date of Service: May 29, 2024
Objective Data
-
Labs:
Laboratory Results
05/29/24
07:40
WBC 7.6
Hgb 12.8
Hct 37.2
Plt Count 169
Sodium 134 L
Potassium 4.0
Chloride 104
Carbon Dioxide 23
BUN 17
Creatinine 0.8
Glucose 104 H
Calcium 8.5
Vital Signs:
Vital Signs
Temp Pulse Resp BP Pulse Ox
36.9 C 74 16 149/64 95
05/29/24 07:30 05/29/24 07:30 05/29/24 07:30 05/29/24 07:30 05/29/24 07:30
I&O
05/28/24 05/29/24 05/30/24
06:59 06:59 06:59
Intake Total 360 / 360 1440 / 1440
Output Total 1600 / 1600 500 / 500
Balance -1240 / -1240 940 / 940
Review of Systems
-
Musculoskeletal: Reports Joint Pain (L knee pain and swelling )
Physical Exam
-
General: Well Developed, Well Nourished, No Apparent Distress, Comfortable, Conversant and Obese; Negative Respiratory Distress
HEENT: Normocephalic, Atraumatic, Nose Appears Normal and Ears Appear Normal; Negative Oxygen
Respiratory: Clear to Auscultation and Non Labored Respirations; Negative Accessory Resp Muscle Use
Cardiac: Regular Rhythm and S1/S2
GI: Soft, Nontender, Nondistended and Normal Bowel Sounds
Musculoskeletal: Other (L knee swelling )
Skin: Warm and Dry
Neuro: Awake, Alert, Oriented and AO x 3
Psych: Calm and Intact Judgement/Insight
Data Reviewed
-
Labs: Labs Reviewed by me
[2024-05-29] MEDS: JARDIANCE 10 MG PO (09:25)
[2024-05-29] MEDS: FIBERCON 625 MG PO (09:25)
[2024-05-29] MEDS: COZAAR 50 MG PO ×2 (09:25→23:19)
[2024-05-29] MEDS: MAXIPIME 1000 MG IV ×2 (09:26→21:12)
[2024-05-29] MEDS: STERILE WATER FOR INJECTION 10 ML IV ×2 (09:26→21:13)
[2024-05-29] MEDS: TOPROL XL 25 MG PO ×2 (09:32→21:13)
[2024-05-29 12:03] LABS: Glucose - Point of Care 97 mg/dl (70-99)
--- NOTE | 2024-05-29 12:11 | CM ---
Chart reviewed and patient will need new PT/OT orders to assist with discharge planning.
Plan; Await recommendations from PT/OT.
[2024-05-29 15:08] LABS: Glucose - Point of Care 98 mg/dl (70-99)
[2024-05-29] MEDS: DILAUDID 0.25 MG IV (15:18)
[2024-05-29] MEDS: NORMOSOL-R 1000 IV (15:28)
--- NOTE | 2024-05-29 15:46 | PHA.VAN.FU ---
Vancomycin Assessment / Plan
- Assessment
Renal Function: Stable
WBC's are: WNL
In the past 24 hrs, patient has been: Afebrile
Concomitant Antimicrobials: cefepime
- Dosing Plan
Continue: Vanc 1500mg Q24H
- Monitoring Plan
No level(s) ordered at this time: consider levels in next few days
- Follow Up
Pharmacy will continue to follow.
Vancomycin Follow UP
- -
Patient Age: 84
Patient Sex: Female
Vancomycin Day #: 3
Indication: [facility] And Joint
Requesting Provider: Dr. Valdez
Pertinent Antimicrobial Allergies:
no pertinent antibiotic allergies
Height / Weight:
Height 5 ft 4 in
Actual Weight 95.85 kg
Pertinent Past Medical History: BMI ~36, DM 2, L TKA
- Vital Signs / Lab Results
Temp Pulse Resp BP Pulse Ox
97.8 F 70 14 144/60 98
05/29/24 14:48 05/29/24 15:30 05/29/24 15:30 05/29/24 15:30 05/29/24 15:30
Lab Results - Hematology
05/27/24 05/28/24 05/29/24
07:28 06:36 07:40
WBC 14.6 H 9.7 7.6
Lab Results - Chemistry
05/27/24 05/28/24 05/29/24
07:28 06:36 07:40
BUN 14 18 H 17
Creatinine 0.8 0.8 0.8
Estimated Creat Clear 59 59 59
Microbiology Results
05/27/24 10:23 Blood Culture - Preliminary
Blood/Venous No Growth in 48 hours- Final report to follow
05/27/24 09:33 Blood Culture - Preliminary
Blood/Venous No Growth in 48 hours- Final report to follow
05/27/24 13:14 Body Fluid Culture - Preliminary
Joint Fluid Streptococcus species
Gram Stain - Preliminary
[2024-05-29 17:54] LABS: Glucose - Point of Care 120 mg/dl (70-99)
[2024-05-29] MEDS: NOVOLOG FLEXPEN-LOW RESISTANCE SC (17:57)
[2024-05-29] MEDS: COZAAR PO (21:13)
[2024-05-29 21:32] LABS: Glucose - Point of Care 197 mg/dl (70-99)
[2024-05-29] MEDS: MELATONIN 10 MG PO (23:19)
[2024-05-30] VITALS (8 sets, daily range): BP systolic 137–155; BP diastolic 53–69; PULSE 73–76
[2024-05-30] MEDS: VANCOCIN 300 ML IV (06:34)
[2024-05-30] MEDS: VANCOCIN 300 MG IV (06:34)
[2024-05-30 07:22] LABS: Glucose - Point of Care 128 mg/dl (70-99)
--- NOTE | 2024-05-30 07:49 | W.PN.ORTHO ---
Today's Communication / Plan
-
84-year-old female postop day 1 left knee total knee arthroplasty PJI debridement irrigation with polyethylene exchange with Dr. Hackett
-Weightbearing as tolerated to left lower extremity. PT/OT/discharge planning
-Infectious disease on board, appreciate assistance; no growth to date on current labs
-DVT prophylaxis ASA 325 daily or otherwise per primary
-Pain controlled with current regimen
-Orthopedic surgery will continue to follow
Assessment
.
Distal Motor Intact: Yes
Dressing:
Clean, dry and intact.
Plan
.
Surgery / Date: L TKA D&I poly savanah w/ Dr. Hackett
Activity:
Out of bed.
PT/OT
Subjective
.
.:
Patient resting comfortably.
Vital Signs and Labs
.
Vital Signs and Labs:
Temp Pulse Resp BP Pulse Ox
97.5 F 68 19 155/66 97
05/30/24 07:32 05/30/24 07:32 05/30/24 07:32 05/30/24 07:32 05/30/24 07:32
[2024-05-30] MEDS: NOVOLOG FLEXPEN-LOW RESISTANCE SC ×3 (07:57→17:25)
[2024-05-30 08:29] LABS: % Basophils 0.3 % (0-2); % Immature Granulocytes 0.7 % (0-0.5); % Lymphocytes 6.7 % (20.5-51.1); % Monocytes 11.8 % (1.7-9.3); % Neutrophils 80.5 % (42.2-75.2); Absolute Immature Granulocytes 0.1 10^3/uL (0-0.05); Absolute Lymphocytes 0.6 10^3/uL (1.2-3.4); Absolute Neutrophils 7.1 10^3/uL (1.4-6.5); Hematocrit 34.5 % (37.0-47.0); Mean Corp Hgb Conc. 34.8 g/dL (33.0-37.0); Mean Corpuscular Volume 94.8 fL (81.0-99.0); Mean Platelet Volume 10.1 fL (7.4-10.4); Nucleated Red Blood Cells % 0 %; Platelet Count 203 10^3/uL (130-400); Red Blood Cell Count 3.64 10^6/uL (4.20-5.40); Red Cell Dist. Width 12.1 % (11.5-14.5); White Blood Cell Count 8.8 10^3/uL (4.8-10.8)
[2024-05-30 08:51] LABS: Blood Urea Nitrogen 17 mg/dl (7-17); Calcium 8.3 mg/dl (8.4-10.2); Carbon Dioxide 24 mmol/L (22-30); Chloride 106 mmol/L (98-107); Estimated Creatinine Clearance 78 ml/min; Glucose 118 mg/dl (70-99); Potassium 4.6 mmol/L (3.5-5.1); Sodium 135 mmol/L (135-145); eGFR > 60.00
[2024-05-30] MEDS: TOPROL XL 25 MG PO ×2 (09:59→20:27)
[2024-05-30] MEDS: COZAAR 50 MG PO ×2 (09:59→20:26)
[2024-05-30] MEDS: JARDIANCE 10 MG PO (09:59)
[2024-05-30] MEDS: FIBERCON 625 MG PO (10:01)
[2024-05-30] MEDS: MAXIPIME 1000 MG IV (10:01)
[2024-05-30] MEDS: STERILE WATER FOR INJECTION 10 ML IV (10:03)
[2024-05-30] MEDS: TYLENOL 650 MG PO ×2 (10:14→23:34)
--- NOTE | 2024-05-30 10:40 | W.PN.ID1 ---
Date of Service
Date of Service: May 30, 2024
Today's Communication
Continue antibiotics. See below�
Assessment / Plan
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
- s/p washout
Leukocytosis; improved
Marked CRP elevation without concomitant ESR elevation.
Paroxysmal A-fib
Aortic stenosis
HTN
Dyslipidemia
DM
Recommendations:
Patient is status post left knee debridement irrigation with polyethylene exchange (05/29/2024).
Cultures from 05/27 revealed growth of Streptococcus species.
Narrow to cefazolin 2 g IV every 8 hours.
Would anticipate a 6-week course of IV antibiotics.
Home infusion sheet will be placed on paper chart and given to case management.
PICC line as patient approaches discharge.
Will follow-up in the office in 2-3 weeks.
����������������������������������������������������������
Chief Complaint
-: Other (Left knee prosthetic joint infection)
Subjective / Review of Systems
Review of Systems: No Fever and No Chills
Vital Signs / Physical Exam
Vital Signs
Vital Signs
Temp Pulse Resp BP Pulse Ox
97.5 F 68 19 155/66 97
05/30/24 07:32 05/30/24 07:32 05/30/24 07:32 05/30/24 07:32 05/30/24 07:32
Physical Exam
Constitutional: No Acute Distress, Comfortable and Non-toxic
Eyes: Sclera Anicteric
Cardiovascular: S1/S2; Negative S3/S4
Pulmonary: Clear; Negative Wheezes or Rales
Gastrointestinal: Soft and Non Tender
Extremities: Other (Left knee with dressing in place. Minimal strikethrough.)
Neurological: Awake and Alert
Psychological: Calm
Objective Data
Lab Data
Lab Results
05/30/24 08:13
05/30/24 08:13
ESR 26 mm/hour (0-20) H 05/27/24 07:28
Estimated Creat Clear 78 ml/min 05/30/24 08:13
C-Reactive Protein > 270.00 mg/L (0.0-10.00) H 05/27/24 07:28
Most recent labs reviewed.
Micro Results:
05/27/24 13:14 Body Fluid Culture - Preliminary
Joint Fluid Streptococcus salivarius
Gram Stain - Preliminary
05/27/24 10:23 Blood Culture - Preliminary
Blood/Venous No Growth in 72 hours- Final report to follow
05/27/24 09:33 Blood Culture - Preliminary
Blood/Venous No Growth in 72 hours- Final report to follow
05/29/24 14:30 Anaerobic Culture - Preliminary
Knee - Left Culture pending. Anaerobic cultures are examined after 3
days incubation. Additional information to follow.
05/29/24 14:30 Wound Culture - Preliminary
Knee - Left No growth
Gram Stain - Preliminary
Imaging:
05/27/24 CT left lower extremity with contrast: A left total knee replacement with significant streak artifact was noted. There is a moderate to large joint effusion with slightly thickened enhancing peripheral margin.
05/26/2024 Duplex ultrasound left lower extremity: No evidence of DVT
05/26/2024 X-ray left knee: Left knee arthroplasty seen in position. No cortical fracture, dislocation or focal bony destructive process noted. Film personally viewed.
--- NOTE | 2024-05-30 11:17 | PN.CDI ---
CDI
- -
CDI:
Physician Documentation Request
Admit Date: 05/28/24 11:22
Dear Doctor Lew,
Patient admitted with septic arthritis.
05/29 Operative report: 'Left knee extensive debridement with irrigation utilizing 6 liters of Povidone irrigation with 1 L of saline and concentrated Betadine...With the knee in extension, the posterior joint was debrided as well.'
Could you provide, in the progress notes further clarification regarding the debridement.
Please specify the type of debridement performed:
1. Excisional Debridement - defined as removal by excision of devitalized tissue, necrosis or slough
2. Non-excisional debridement - defined as removal of devitalized tissue, necrosis or slough by such methods as irrigation, brushing, scrubbing or washing.
If the debridement was excisional, please also include:
1. Type of instrument used (#11 blade, #15 blade etc.)
2. What was excised (necrotic tissue, gangrenous tissue, slough etc.)
For excisional or non-excisional, please also include:
1. Depth of debridement (skin, subcutaneous tissue, fascia, muscle, bone etc)
2. Size and appearance of the wound (L, W, D, color of wound, drainage)
Use of terms such as suspected, likely, concern for, or probable (associated with a specific diagnosis that is being evaluated, monitored, or treated as if it exists) are acceptable and can be coded in the inpatient setting, when documented at the
time of discharge.
Thank you,
Annalise Whitley RN, BSN
CDI Specialist
Available via [facility] text
Please use your independent medical judgment in providing your response.
--- NOTE | 2024-05-30 11:33 | W.PN.HOSP.TC ---
Today's Communication/Plan
-
see A/P
Assessment / Plan
Assessment / Plan
HPI: 84-year-old female past medical history of paroxysmal atrial fibrillation, aortic stenosis, hypertension, diabetes mellitus who presented with left knee pain. Patient reported she had both lower extremities elevated on stool yesterday afternoon
for about an hour or so while she was watching TV. She noted when she attempted to get up when she bent her knee she developed severe left knee pain. She noted pain has been present since that time. She notes pain is worse with walking, and
bending the knee, to the point that is affecting her ability to ambulate prompting her to come to the emergency department for evaluation. She denies any fevers, sweats or chills. She denies known tick bite.
A/P:
# Ambulatory Dysfunction secondary to Left Knee Pain
# Sepsis POA due to septic arthritis L knee
L knee XR unrevealing: Left knee arthroplasty in position. No acute osseous abnormality.
Left Knee CT noted Moderate to large joint effusion with slightly thickened enhancing peripheral margin.
s/p L knee tap, WBC > 50 k
wound culture from 05/27 growing Strep
cefepime/vancomycin narrowed to cefazolin 2 g IV every 8 hours, anticipate a 6-week course of IV antibiotics. CM to facilitate home infusion if pt prefers to return home.
Of note, blood cultures negative
s/p L knee total arthroplasty PJI debridement irrigation with polyethylene exchange with Dr. Hackett 05/29
Weightbearing as tolerated to left lower extremity.
DVT prophylaxis ASA 325 daily today, then resume [employer]CH[employer]ICIAN Xarelto starting 05/31
Pain controlled with current Tylenol/ percocet
PT/OT/discharge planning
# Paroxysmal Atrial Fibrillation
[employer] Xarelto for anticoagulation
Continue metoprolol for rate control
# Essential Hypertension
Continue losartan with hold parameters
# Diabetes Mellitus, Type II
Continue Jardiance
Monitor sugars and continue coverage insulin
# Aortic stenosis, stable
DVT proph: [employer]TE[employer] Xarelto on hold , full dose ASA today
Code Status: Full Code
Anticipated Discharge: 24 - 48 hours
Subjective/Interval History
-
Date of Service: May 30, 2024
Objective Data
-
Labs:
Laboratory Results
05/30/24 05/30/24
05:42 08:13
WBC 8.8
Hgb 12.0
Hct 34.5 L
Plt Count 203 D
Sodium Cancelled 135
Potassium Cancelled 4.6
Chloride Cancelled 106
Carbon Dioxide Cancelled 24
BUN Cancelled 17
Creatinine Cancelled 0.6
Glucose Cancelled 118 H
Calcium Cancelled 8.3 L
Vital Signs:
Vital Signs
Temp Pulse Resp BP Pulse Ox
36.4 C 68 19 155/66 97
05/30/24 07:32 05/30/24 07:32 05/30/24 07:32 05/30/24 07:32 05/30/24 07:32
I&O
05/29/24 05/30/24 05/31/24
06:59 06:59 06:59
Intake Total 1440 / 1440 675 / 675
Output Total 500 / 500
Balance 940 / 940 675 / 675
Review of Systems
-
Musculoskeletal: Reports Joint Pain (L knee pain and swelling has much resolved )
Physical Exam
-
General: Well Developed, Well Nourished, No Apparent Distress, Comfortable, Conversant and Obese; Negative Respiratory Distress
HEENT: Normocephalic, Atraumatic, Nose Appears Normal and Ears Appear Normal; Negative Oxygen
Respiratory: Clear to Auscultation and Non Labored Respirations; Negative Accessory Resp Muscle Use
Cardiac: Regular Rhythm and S1/S2
GI: Soft, Nontender, Nondistended and Normal Bowel Sounds
Musculoskeletal: Other (L knee swelling improved )
Skin: Warm and Dry
Neuro: Awake, Alert, Oriented and AO x 3
Psych: Calm and Intact Judgement/Insight
Data Reviewed
-
CT Scan: Report Reviewed by me
Labs: Labs Reviewed by me
[2024-05-30 12:06] LABS: Glucose - Point of Care 186 mg/dl (70-99)
[2024-05-30] MEDS: ANCEF 10 IV ×2 (12:46→20:27)
[2024-05-30] MEDS: ASPIRIN 325 MG PO (13:11)
--- NOTE | 2024-05-30 13:26 | CM ---
Addendum entered by Erin Ya RN 05/30/24 15:12:
CM spoke with [facility] main office. They have received referral and will review and quintero medication out. Will not be able to accommodate until earliest Sunday.
Original Note:
Received CM consult for IV abx pricing. CM spoke with the patient at the bedside. Discussed with patient IV abx Q8h x 6 weeks. Patient feels that as long as insurance covers it she will be able to manage at home. She resides with her spouse.
Script for IV abx obtained and clinicals faxed to [facility]. Awaiting cost analysis. PICC line to be placed closer to discharge. CM continues to be available to patient/family and is monitoring medical plan for needs at discharge.
Plan: Discharge plans will depend on insurance coverage of IV abx at home. If home, home with VN services.
[2024-05-30 17:17] LABS: Glucose - Point of Care 125 mg/dl (70-99)
[2024-05-30 20:58] LABS: Glucose - Point of Care 142 mg/dl (70-99)
[2024-05-30] MEDS: MELATONIN 10 MG PO (21:36)
[2024-05-30] MEDS: STERILE WATER FOR INJECTION IV (22:10)
[2024-05-31] MEDS: ANCEF 10 IV ×3 (03:50→20:10)
[2024-05-31] MEDS: TYLENOL 650 MG PO ×4 (04:09→16:46)
[2024-05-31 07:10] LABS: Glucose - Point of Care 117 mg/dl (70-99)
[2024-05-31 07:56] VITALS: BP 161/70
--- NOTE | 2024-05-31 08:19 | W.PN.ORTHO ---
Today's Communication / Plan
-
POD #2 s/p left knee I&D and poly exchange for PJI.
-Continue IV antibiotics per ID recommendations. PICC line prior to d/c.
-WBAT with walker.
-PT/OT to tolerance.
-Continue current pain regimen.
-Resume Xarelto.
-F/u in 2 weeks for staple removal and clinical re-evaluation.
-D/c home with home PT when medically stable.
-Will continue to follow along while inpatient.
Assessment
.
Distal Motor Intact: Yes
Dressing:
Clean, dry and intact.
Assessment:
POD #2 s/p left knee I&D and poly exchange for PJI.
-Continue IV antibiotics per ID recommendations. PICC line prior to d/c.
-WBAT with walker.
-PT/OT to tolerance.
-Continue current pain regimen.
-Resume Xarelto.
-F/u in 2 weeks for staple removal and clinical re-evaluation.
-D/c home with home PT when medically stable.
-Will continue to follow along while inpatient.
Plan
.
Surgery / Date: L TKA D&I poly xcanish w/ Dr. Hackett
DVT Prophylaxis: Other
Activity:
Out of bed.
PT/OT
Discharge Plan: Home
Subjective
.
.:
Patient resting comfortably, asleep on my arrival. Reports pain is well controlled, much improved compared to pre-op pain. Has been able to get up and walk around with minimal discomfort. OR cultures still pending. Currently on IV cefazolin 2 g
q 8 hours for Strep salivarius. Has been on Aspirin for DVT prophylaxis.
Vital Signs and Labs
.
Vital Signs and Labs:
Temp Pulse Resp BP Pulse Ox
97.9 F 70 18 161/70 98
05/31/24 07:56 05/31/24 07:56 05/31/24 07:56 05/31/24 07:56 05/31/24 07:56
Physical Exam
-
Left knee: Mild diffuse swelling, no erythema or significant warmth. Mild TTP diffusely over knee. ROM 0-90 degrees without pain. Calf soft and non tender to palpation. N/v intact distally.
[2024-05-31] MEDS: JARDIANCE 10 MG PO (08:44)
[2024-05-31] MEDS: ASPIRIN 325 MG PO (08:44)
[2024-05-31] MEDS: FIBERCON 625 MG PO (08:44)
[2024-05-31] MEDS: TOPROL XL 25 MG PO ×2 (08:44→20:11)
[2024-05-31] MEDS: NOVOLOG FLEXPEN-LOW RESISTANCE SC ×2 (08:44→17:48)
[2024-05-31] MEDS: COZAAR 50 MG PO ×2 (08:44→20:11)
--- NOTE | 2024-05-31 09:25 | W.PN.ID1 ---
Date of Service
Date of Service: May 31, 2024
Today's Communication
Continue cefazolin x 6 weeks.
Assessment / Plan
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
- s/p washout
Leukocytosis resolved
Marked CRP elevation without concomitant ESR elevation.
Paroxysmal A-fib
Aortic stenosis
HTN
Dyslipidemia
DM
Recommendations:
Patient is status post left knee debridement irrigation with polyethylene exchange (05/29/2024).
OR cx: Strep salivarius
Cultures from 05/27 revealed growth of Streptococcus salivarius.
Continue cefazolin 2 g IV every 8 hours.
Would anticipate a 6-week course of IV antibiotics.
Home infusion sheet will be placed on paper chart and given to case management.
PICC line as patient approaches discharge.
Follow-up with Dr. Sen in 2-3 weeks.
����������������������������������������������������������
Chief Complaint
-: Other (Left knee prosthetic joint infection)
Subjective / Review of Systems
No significant knee pain.
Vital Signs / Physical Exam
Vital Signs
Vital Signs
Temp Pulse Resp BP Pulse Ox
97.9 F 70 18 161/70 98
05/31/24 07:56 05/31/24 07:56 05/31/24 07:56 05/31/24 07:56 05/31/24 07:56
Physical Exam
Constitutional: No Acute Distress and Comfortable
Musculoskeletal: Negative Joint Effusion (left knee, no erythema)
Wound: Other (left knee dressing with mild bloody)
Neurological: AO x 3
Objective Data
Lab Data
ESR 26 mm/hour (0-20) H 05/27/24 07:28
Estimated Creat Clear 78 ml/min 05/30/24 08:13
C-Reactive Protein > 270.00 mg/L (0.0-10.00) H 05/27/24 07:28
Most recent labs reviewed.
Micro Results:
05/29/24 14:30 Wound Culture - Preliminary
Knee - Left Streptococcus salivarius
Gram Stain - Preliminary
05/27/24 13:14 Body Fluid Culture - Final
Joint Fluid Streptococcus salivarius
Gram Stain - Final
05/27/24 10:23 Blood Culture - Preliminary
Blood/Venous No Growth in 72 hours- Final report to follow
05/27/24 09:33 Blood Culture - Preliminary
Blood/Venous No Growth in 72 hours- Final report to follow
05/29/24 14:30 Anaerobic Culture - Preliminary
Knee - Left Culture pending. Anaerobic cultures are examined after 3
days incubation. Additional information to follow.
Imaging:
05/27/24 CT left lower extremity with contrast: A left total knee replacement with significant streak artifact was noted. There is a moderate to large joint effusion with slightly thickened enhancing peripheral margin.
05/26/2024 Duplex ultrasound left lower extremity: No evidence of DVT
05/26/2024 X-ray left knee: Left knee arthroplasty seen in position. No cortical fracture, dislocation or focal bony destructive process noted. Film personally viewed.
[2024-05-31 10:12] LABS: % Basophils 0.9 % (0-2); % Eosinophils 3.5 % (0-6); % Immature Granulocytes 0.3 % (0-0.5); % Lymphocytes 18.4 % (20.5-51.1); % Monocytes 13.6 % (1.7-9.3); % Neutrophils 63.3 % (42.2-75.2); Absolute Basophils 0.1 10^3/uL (0-0.2); Absolute Eosinophils 0.2 10^3/uL (0-0.7); Absolute Lymphocytes 1.3 10^3/uL (1.2-3.4); Absolute Monocytes 0.9 10^3/uL (0.1-0.6); Absolute Neutrophils 4.4 10^3/uL (1.4-6.5); Hematocrit 37.2 % (37.0-47.0); Hemoglobin 12.8 g/dL (12.0-16.0); Mean Corp Hgb Conc. 34.4 g/dL (33.0-37.0); Mean Corpuscular Hgb 32.3 pg (27.0-31.0); Mean Corpuscular Volume 93.9 fL (81.0-99.0); Mean Platelet Volume 10.2 fL (7.4-10.4); Nucleated Red Blood Cells % 0 %; Platelet Count 255 10^3/uL (130-400); Red Blood Cell Count 3.96 10^6/uL (4.20-5.40); Red Cell Dist. Width 12.2 % (11.5-14.5); White Blood Cell Count 6.9 10^3/uL (4.8-10.8)
--- NOTE | 2024-05-31 10:12 | W.PN.HOSP.TC ---
Today's Communication/Plan
-
see A/P
Assessment / Plan
Assessment / Plan
HPI: 84-year-old female past medical history of paroxysmal atrial fibrillation, aortic stenosis, hypertension, diabetes mellitus who presented with left knee pain. Patient reported she had both lower extremities elevated on stool yesterday afternoon
for about an hour or so while she was watching TV. She noted when she attempted to get up when she bent her knee she developed severe left knee pain. She noted pain has been present since that time. She notes pain is worse with walking, and
bending the knee, to the point that is affecting her ability to ambulate prompting her to come to the emergency department for evaluation. She denies any fevers, sweats or chills. She denies known tick bite.
A/P:
# Ambulatory Dysfunction secondary to Left Knee Pain
# Sepsis POA due to septic arthritis L knee
L knee XR unrevealing: Left knee arthroplasty in position. No acute osseous abnormality.
Left Knee CT noted Moderate to large joint effusion with slightly thickened enhancing peripheral margin.
s/p L knee tap, WBC > 50 k
wound culture from 05/27 growing Strep
cefepime/vancomycin narrowed to cefazolin 2 g IV every 8 hours, anticipate a 6-week course of IV antibiotics. CM to facilitate home infusion if pt prefers to return home.
Of note, blood cultures negative
s/p L knee total arthroplasty PJI debridement irrigation with polyethylene exchange with Dr. Hackett 05/29
Weightbearing as tolerated to left lower extremity.
resumed [employer]ES [employer] Xarelto for DVT prophylaxis (off ASA)
Pain controlled with current Tylenol/ percocet
PT/OT/discharge planning
# Paroxysmal Atrial Fibrillation
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
Continue metoprolol for rate control
# Essential Hypertension
Continue losartan with hold parameters
# Diabetes Mellitus, Type II
Continue Jardiance
Monitor sugars and continue coverage insulin
# Aortic stenosis, stable
DVT proph: resumed SALES [employer]TER Xarelto
Code Status: Full Code
Anticipated Discharge: 24 - 48 hours
Subjective/Interval History
-
Date of Service: May 31, 2024
Objective Data
-
Labs:
Laboratory Results
05/31/24
09:40
WBC Pending
Hgb Pending
Hct Pending
Plt Count Pending
Sodium Pending
Potassium Pending
Chloride Pending
Carbon Dioxide Pending
BUN Pending
Creatinine Pending
Glucose Pending
Calcium Pending
Vital Signs:
Vital Signs
Temp Pulse Resp BP Pulse Ox
36.6 C 70 18 161/70 98
05/31/24 07:56 05/31/24 07:56 05/31/24 07:56 05/31/24 07:56 05/31/24 07:56
I&O
05/30/24 05/31/24 06/01/24
06:59 06:59 06:59
Intake Total 675 / 675 1720 / 1720
Balance 675 / 675 1720 / 1720
Review of Systems
-
Musculoskeletal: Reports Joint Pain (L knee pain and swelling has much resolved )
Physical Exam
-
General: Well Developed, Well Nourished, No Apparent Distress, Comfortable, Conversant and Obese; Negative Respiratory Distress
HEENT: Normocephalic, Atraumatic, Nose Appears Normal and Ears Appear Normal; Negative Oxygen
Respiratory: Clear to Auscultation and Non Labored Respirations; Negative Accessory Resp Muscle Use
Cardiac: Regular Rhythm and S1/S2
GI: Soft, Nontender, Nondistended and Normal Bowel Sounds
Musculoskeletal: Other (L knee swelling improved )
Skin: Warm and Dry
Neuro: Awake, Alert, Oriented and AO x 3
Psych: Calm and Intact Judgement/Insight
Data Reviewed
-
CT Scan: Report Reviewed by me
Labs: Labs Reviewed by me
[2024-05-31 10:28] LABS: Blood Urea Nitrogen 18 mg/dl (7-17); Calcium 8.5 mg/dl (8.4-10.2); Carbon Dioxide 24 mmol/L (22-30); Chloride 104 mmol/L (98-107); Estimated Creatinine Clearance 67 ml/min; Glucose 107 mg/dl (70-99); Sodium 136 mmol/L (135-145); eGFR > 60.00
[2024-05-31 12:29] LABS: Glucose - Point of Care 172 mg/dl (70-99)
[2024-05-31] MEDS: NOVOLOG FLEXPEN-LOW RESISTANCE 1 UNITS SC (12:34)
[2024-05-31 15:54] VITALS: BP 151/60
[2024-05-31 17:24] LABS: Glucose - Point of Care 106 mg/dl (70-99)
[2024-05-31] MEDS: TORADOL 15 MG IV (18:41)
[2024-05-31 20:22] VITALS: BP 152/66
[2024-05-31] MEDS: MELATONIN 10 MG PO (21:50)
[2024-05-31 22:13] LABS: Glucose - Point of Care 125 mg/dl (70-99)
[2024-05-31 23:06] VITALS: BP 142/58
[2024-06-01] MEDS: ANCEF 10 IV ×3 (04:29→20:46)
[2024-06-01 06:02] LABS: % Eosinophils 5.1 % (0-6); % Immature Granulocytes 0.5 % (0-0.5); % Lymphocytes 20.3 % (20.5-51.1); % Monocytes 12.6 % (1.7-9.3); % Neutrophils 60.5 % (42.2-75.2); Absolute Basophils 0.1 10^3/uL (0-0.2); Absolute Eosinophils 0.3 10^3/uL (0-0.7); Absolute Lymphocytes 1.2 10^3/uL (1.2-3.4); Absolute Monocytes 0.7 10^3/uL (0.1-0.6); Absolute Neutrophils 3.6 10^3/uL (1.4-6.5); Hematocrit 34.7 % (37.0-47.0); Hemoglobin 11.9 g/dL (12.0-16.0); Mean Corp Hgb Conc. 34.3 g/dL (33.0-37.0); Mean Corpuscular Hgb 33.4 pg (27.0-31.0); Mean Corpuscular Volume 97.5 fL (81.0-99.0); Mean Platelet Volume 10.1 fL (7.4-10.4); Nucleated Red Blood Cells % 0 %; Platelet Count 223 10^3/uL (130-400); Red Blood Cell Count 3.56 10^6/uL (4.20-5.40); Red Cell Dist. Width 12.1 % (11.5-14.5); White Blood Cell Count 5.9 10^3/uL (4.8-10.8)
[2024-06-01 06:22] LABS: Blood Urea Nitrogen 22 mg/dl (7-17); Calcium 8.3 mg/dl (8.4-10.2); Carbon Dioxide 25 mmol/L (22-30); Chloride 106 mmol/L (98-107); Estimated Creatinine Clearance 67 ml/min; Glucose 102 mg/dl (70-99); Potassium 4.1 mmol/L (3.5-5.1); Sodium 136 mmol/L (135-145); eGFR > 60.00
[2024-06-01 07:33] LABS: Glucose - Point of Care 108 mg/dl (70-99)
[2024-06-01 07:40] VITALS: BP 148/71
[2024-06-01] MEDS: NOVOLOG FLEXPEN-LOW RESISTANCE SC ×3 (07:52→16:53)
[2024-06-01] MEDS: FIBERCON 625 MG PO (07:55)
[2024-06-01] MEDS: XARELTO 20 MG PO (07:55)
[2024-06-01] MEDS: JARDIANCE 10 MG PO (07:55)
[2024-06-01] MEDS: TOPROL XL 25 MG PO ×2 (07:58→20:47)
[2024-06-01] MEDS: COZAAR 50 MG PO ×2 (08:08→20:48)
--- NOTE | 2024-06-01 09:04 | W.PN.ORTHO ---
Today's Communication / Plan
-
POD #3 s/p left knee I&D and poly exchange for PJI.
-Continue IV antibiotics per ID recommendations. Intra op cultures also + for Strep salivarius. PICC line prior to d/c.
-WBAT with walker.
-PT/OT to tolerance.
-Continue current pain regimen.
-Resume Xarelto.
-F/u in 2 weeks for staple removal and clinical re-evaluation.
-D/c home with home PT when medically stable.
-Will continue to follow along while inpatient.
Assessment
.
Distal Motor Intact: Yes
Dressing:
Clean, dry and intact.
Assessment:
POD #3 s/p left knee I&D and poly exchange for PJI.
-Continue IV antibiotics per ID recommendations. Intra op cultures also + for Strep salivarius. PICC line prior to d/c.
-WBAT with walker.
-PT/OT to tolerance.
-Continue current pain regimen.
-Resume Xarelto.
-F/u in 2 weeks for staple removal and clinical re-evaluation.
-D/c home with home PT when medically stable.
-Will continue to follow along while inpatient.
Plan
.
Surgery / Date: L TKA D&I poly savanah w/ Dr. Hackett
DVT Prophylaxis: Other
Activity:
Out of bed.
PT/OT
Discharge Plan: Home
Subjective
.
.:
Patient resting comfortably in bed. Does report some increased pain yesterday that resolved with a single dose of IV toradol. Has been able to work with PT, but continues to have some weakness in LLE. Pain otherwise well controlled.
Vital Signs and Labs
.
Vital Signs and Labs:
Lab Results
06/01/24 05:18
06/01/24 05:18
Temp Pulse Resp BP Pulse Ox
97.5 F 72 17 147/71 96
06/01/24 07:40 06/01/24 08:08 06/01/24 07:40 06/01/24 08:08 06/01/24 07:40
Physical Exam
-
Left knee: Aquacel dressing with moderate drainage. This was removed to reveal the incision to be well approximated, no active drainage. Mild diffuse swelling. Less tenderness to palpation. ROM 0-60 degrees with pain. Calf soft and nontender to
palpation.
--- NOTE | 2024-06-01 10:36 | W.PN.HOSP.TC ---
Today's Communication/Plan
-
see A/P
Assessment / Plan
Assessment / Plan
HPI: 84-year-old female past medical history of paroxysmal atrial fibrillation, aortic stenosis, hypertension, diabetes mellitus who presented with left knee pain. Patient reported she had both lower extremities elevated on stool yesterday afternoon
for about an hour or so while she was watching TV. She noted when she attempted to get up when she bent her knee she developed severe left knee pain. She noted pain has been present since that time. She notes pain is worse with walking, and
bending the knee, to the point that is affecting her ability to ambulate prompting her to come to the emergency department for evaluation. She denies any fevers, sweats or chills. She denies known tick bite.
A/P:
# Ambulatory Dysfunction secondary to Left Knee Pain
# Sepsis POA due to septic arthritis L knee
L knee XR unrevealing: Left knee arthroplasty in position. No acute osseous abnormality.
Left Knee CT noted Moderate to large joint effusion with slightly thickened enhancing peripheral margin.
s/p L knee tap, WBC > 50 k
wound culture from 05/27 growing Strep
cefepime/vancomycin narrowed to cefazolin 2 g IV every 8 hours, anticipate 6-week course of IV antibiotics. CM to facilitate home infusion.
Of note, blood cultures negative
s/p L knee total arthroplasty PJI debridement irrigation with polyethylene exchange with Dr. Hackett 05/29
Weightbearing as tolerated to left lower extremity.
resumed [employer] Xarelto for DVT prophylaxis.
Pain controlled with current Tylenol/ Percocet.
PT/OT/discharge planning
# Paroxysmal Atrial Fibrillation
[employer] Xarelto for anticoagulation
Continue metoprolol for rate control
# Essential Hypertension
Continue losartan with hold parameters
# Diabetes Mellitus, Type II
Continue Jardiance
Monitor sugars and continue coverage insulin
# Aortic stenosis, stable
DVT proph: resumed [employer] Xarelto
Code Status: Full Code
Anticipated Discharge: Within 24 hours
Subjective/Interval History
-
Date of Service: June 01, 2024
Objective Data
-
Labs:
Laboratory Results
06/01/24
05:18
WBC 5.9
Hgb 11.9 L
Hct 34.7 L
Plt Count 223
Sodium 136
Potassium 4.1
Chloride 106
Carbon Dioxide 25
BUN 22 H
Creatinine 0.7
Glucose 102 H
Calcium 8.3 L
Vital Signs:
Vital Signs
Temp Pulse Resp BP Pulse Ox
36.4 C 72 17 147/71 96
06/01/24 07:40 06/01/24 08:08 06/01/24 07:40 06/01/24 08:08 06/01/24 07:40
I&O
05/31/24 06/01/24 06/02/24
06:59 06:59 06:59
Intake Total 1720 / 1720 1440 / 1440
Balance 1720 / 1720 1440 / 1440
Review of Systems
-
Musculoskeletal: Reports Joint Pain (L knee pain and swelling has much resolved )
Physical Exam
-
General: Well Developed, Well Nourished, No Apparent Distress, Comfortable, Conversant and Obese; Negative Respiratory Distress
HEENT: Normocephalic, Atraumatic, Nose Appears Normal and Ears Appear Normal; Negative Oxygen
Respiratory: Clear to Auscultation and Non Labored Respirations; Negative Accessory Resp Muscle Use
Cardiac: Regular Rhythm and S1/S2
GI: Soft, Nontender, Nondistended and Normal Bowel Sounds
Musculoskeletal: Edema, Left Lower Extrem
Skin: Warm and Dry
Neuro: Awake, Alert, Oriented and AO x 3
Psych: Calm and Intact Judgement/Insight
Data Reviewed
-
CT Scan: Report Reviewed by me
Labs: Labs Reviewed by me
--- NOTE | 2024-06-01 11:21 | W.PN.ID1 ---
Date of Service
Date of Service: June 01, 2024
Today's Communication
Continue cefazolin.
Assessment / Plan
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
- s/p washout
Leukocytosis resolved
Marked CRP elevation without concomitant ESR elevation.
Paroxysmal A-fib
Aortic stenosis
HTN
Dyslipidemia
DM
Recommendations:
Patient is status post left knee debridement irrigation with polyethylene exchange (05/29/2024).
OR cx: Strep salivarius
Arthrocentesis cultures from 05/27 revealed growth of Streptococcus salivarius.
Continue cefazolin 2 g IV every 8 hours.
Would anticipate a 6-week course of IV antibiotics.
Home infusion sheet placed on paper chart and given to case management.
PICC line as patient approaches discharge.
Follow-up with Dr. Sen in 2-3 weeks.
����������������������������������������������������������
Chief Complaint
-: Other (Left knee prosthetic joint infection)
Subjective / Review of Systems
Some post-op knee discomfort.
Vital Signs / Physical Exam
Vital Signs
Vital Signs
Temp Pulse Resp BP Pulse Ox
97.5 F 72 17 147/71 96
06/01/24 07:40 06/01/24 08:08 06/01/24 07:40 06/01/24 08:08 06/01/24 07:40
Physical Exam
Constitutional: No Acute Distress
Gastrointestinal: Soft, Non Tender and Non Distended
Musculoskeletal: Other (left knee no erythema/effusion)
Wound: Other
Objective Data
Lab Data
Lab Results
06/01/24 05:18
06/01/24 05:18
ESR 26 mm/hour (0-20) H 05/27/24 07:28
Estimated Creat Clear 67 ml/min 06/01/24 05:18
C-Reactive Protein > 270.00 mg/L (0.0-10.00) H 05/27/24 07:28
Most recent labs reviewed.
Micro Results:
05/29/24 14:30 Anaerobic Culture - Preliminary
Knee - Left Culture pending. Anaerobic cultures are examined after 3
days incubation. Additional information to follow.
05/27/24 10:23 Blood Culture - Final
Blood/Venous No Growth - Final Report
05/27/24 09:33 Blood Culture - Final
Blood/Venous No Growth - Final Report
05/29/24 14:30 Wound Culture - Preliminary
Knee - Left Streptococcus salivarius
Gram Stain - Preliminary
05/27/24 13:14 Body Fluid Culture - Final
Joint Fluid Streptococcus salivarius
Gram Stain - Final
Imaging:
05/27/24 CT left lower extremity with contrast: A left total knee replacement with significant streak artifact was noted. There is a moderate to large joint effusion with slightly thickened enhancing peripheral margin.
05/26/2024 Duplex ultrasound left lower extremity: No evidence of DVT
05/26/2024 X-ray left knee: Left knee arthroplasty seen in position. No cortical fracture, dislocation or focal bony destructive process noted. Film personally viewed.
[2024-06-01 11:40] LABS: Glucose - Point of Care 130 mg/dl (70-99)
[2024-06-01 15:35] VITALS: BP 158/73
[2024-06-01 16:52] LABS: Glucose - Point of Care 105 mg/dl (70-99)
[2024-06-01] MEDS: MELATONIN 10 MG PO (22:47)
[2024-06-01] MEDS: ULTRAM 25 MG PO (22:53)
[2024-06-01 23:48] VITALS: BP 140/65
[2024-06-02] MEDS: ANCEF 10 IV ×2 (04:25→11:04)
[2024-06-02 04:38] LABS: Glucose - Point of Care 116 mg/dl (70-99)
[2024-06-02 07:19] VITALS: BP 151/74
[2024-06-02] MEDS: TOPROL XL 25 MG PO (07:24)
[2024-06-02] MEDS: COZAAR 50 MG PO (07:24)
[2024-06-02] MEDS: JARDIANCE 10 MG PO (07:24)
[2024-06-02] MEDS: XARELTO 20 MG PO (07:24)
[2024-06-02] MEDS: FIBERCON 625 MG PO (07:24)
[2024-06-02 07:51] LABS: Glucose - Point of Care 105 mg/dl (70-99)
[2024-06-02 08:01] LABS: % Basophils 0.7 % (0-2); % Eosinophils 4.2 % (0-6); % Immature Granulocytes 0.5 % (0-0.5); % Monocytes 11.1 % (1.7-9.3); % Neutrophils 58.5 % (42.2-75.2); Absolute Eosinophils 0.3 10^3/uL (0-0.7); Absolute Lymphocytes 1.5 10^3/uL (1.2-3.4); Absolute Monocytes 0.7 10^3/uL (0.1-0.6); Absolute Neutrophils 3.5 10^3/uL (1.4-6.5); Hematocrit 35.4 % (37.0-47.0); Hemoglobin 11.9 g/dL (12.0-16.0); Mean Corp Hgb Conc. 33.6 g/dL (33.0-37.0); Mean Corpuscular Hgb 31.9 pg (27.0-31.0); Mean Corpuscular Volume 94.9 fL (81.0-99.0); Mean Platelet Volume 9.7 fL (7.4-10.4); Nucleated Red Blood Cells % 0 %; Platelet Count 264 10^3/uL (130-400); Red Blood Cell Count 3.73 10^6/uL (4.20-5.40); Red Cell Dist. Width 12.2 % (11.5-14.5)
[2024-06-02] MEDS: NOVOLOG FLEXPEN-LOW RESISTANCE SC ×2 (08:06→11:51)
[2024-06-02 08:55] LABS: Blood Urea Nitrogen 18 mg/dl (7-17); Calcium 8.6 mg/dl (8.4-10.2); Carbon Dioxide 27 mmol/L (22-30); Chloride 104 mmol/L (98-107); Estimated Creatinine Clearance 67 ml/min; Glucose 103 mg/dl (70-99); Potassium 4.4 mmol/L (3.5-5.1); Sodium 136 mmol/L (135-145); eGFR > 60.00
--- NOTE | 2024-06-02 08:57 | W.PN.HOSP.TC ---
Today's Communication/Plan
-
Discharge today
Assessment / Plan
Assessment / Plan
HPI: 84-year-old female past medical history of paroxysmal atrial fibrillation, aortic stenosis, hypertension, diabetes mellitus who presented with left knee pain. Patient reported she had both lower extremities elevated on stool yesterday afternoon
for about an hour or so while she was watching TV. She noted when she attempted to get up when she bent her knee she developed severe left knee pain. She noted pain has been present since that time. She notes pain is worse with walking, and
bending the knee, to the point that is affecting her ability to ambulate prompting her to come to the emergency department for evaluation. She denies any fevers, sweats or chills. She denies known tick bite.
A/P:
# Ambulatory Dysfunction secondary to Left Knee Pain
# Sepsis POA due to left knee prosthetic joint infection
L knee XR unrevealing: Left knee arthroplasty in position. No acute osseous abnormality.
Left Knee CT noted Moderate to large joint effusion with slightly thickened enhancing peripheral margin.
s/p L knee tap, WBC > 50 k
wound culture from 05/27 growing Strep
cefepime/vancomycin narrowed to cefazolin 2 g IV every 8 hours, anticipate 6-week course of IV antibiotics. CM to facilitate home infusion.
Of note, blood cultures negative
s/p L knee total arthroplasty PJI debridement irrigation with polyethylene exchange with Dr. Hackett 05/29
Weightbearing as tolerated to left lower extremity.
Resumed N[employer]SE [employer]CH Xarelto for DVT prophylaxis.
Medically stable for discharge, follow-up with ID & ortho in the office, and PCP in 1 week
# Paroxysmal Atrial Fibrillation
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
Continue metoprolol for rate control
# Essential Hypertension
Continue losartan with hold parameters
# Diabetes Mellitus, Type II
Continue Jardiance
Monitor sugars and continue coverage insulin
# Aortic stenosis, stable
DVT proph: resumed NURSE TECH Xarelto
Code Status: Full Code
Physical Exam
General: Obese, no acute distress
HEENT: Normocephalic, Atraumatic, EOMI, MMM
Respiratory: Clear to Auscultation bilaterally
Cardiac: Normal S1/S2, Regular Rate and Rhythm
GI: Soft, Nontender, Nondistended, Normal Bowel Sounds
Extremities: No Clubbing, Cyanosis, or Edema
Left knee dressed
Neuro: Nonfocal/Grossly Intact
Psych: Calm, Cooperative
Derm: No Visible lesions
Anticipated Discharge: Today
Subjective/Interval History
-
Date of Service: June 02, 2024
Patient denies left knee pain. No fever, no chills. No chest pain, no shortness of breath.
Objective Data
-
Labs:
Laboratory Results
06/02/24
07:34
WBC 6.0
Hgb 11.9 L
Hct 35.4 L
Plt Count 264
Sodium 136
Potassium 4.4
Chloride 104
Carbon Dioxide 27
BUN 18 H
Creatinine 0.7
Glucose 103 H
Calcium 8.6
Vital Signs:
Vital Signs
Temp Pulse Resp BP Pulse Ox
97.5 F 77 16 151/74 97
06/02/24 07:19 06/02/24 07:19 06/02/24 07:19 06/02/24 07:19 06/02/24 07:19
I&O
06/01/24 06/02/24 06/03/24
06:59 06:59 06:59
Intake Total 1440 / 1440 660 / 660
Balance 1440 / 1440 660 / 660
[2024-06-02 09:35] VITALS: BP 151/64; PULSE 73; O2SAT 97
--- NOTE | 2024-06-02 09:50 | W.PN.UPDATE ---
Update Note
Progress Note Update
Patient resting comfortably and did not respond to verbal stim, there I DND. POD #4 s/p LEFT knee I&D (Lew) and poly exchange for PJI. Dressing CDI this AM.
-Continue IV antibiotics per ID recommendations. Intra op cultures also + for Strep salivarius. PICC line prior to d/c.
-WBAT with walker.
-PT/OT to tolerance.
-Continue current pain regimen.
-Resume Xarelto.
-F/u in 2 weeks for staple removal and clinical re-evaluation.
-D/c home with home PT when medically stable.
-Will continue to follow along while inpatient.
--- NOTE | 2024-06-02 11:32 | PTOTSP ---
pt demonstrates ability to complete simple ADLs, functional transfers, ambulation with supervision to no assistance. pt demonstrates good safety awareness with walker. no further OT needs identified at this time, will sign off.
[2024-06-02 11:47] LABS: Glucose - Point of Care 104 mg/dl (70-99)
--- NOTE | 2024-06-02 14:11 | W.DCSUMMARY ---
Discharge Summary
Discharge Data
Date of Admission: 05/28/24
Date of Discharge: 06/02/24
-
Pending Results: No
Hospital Course
Discharge diagnosis:
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
Sepsis due to the above
Paroxysmal atrial fibrillation on xarelto
Benign essential hypertension
Type 2 diabetes
Aortic stenosis
Obesity due to excess calories
Consults: ID, orthopedic surgery
Procedures:
05/29/2024
1. Left knee extensive debridement with irrigation utilizing 6
liters of Povidone irrigation with 1 L of saline and concentrated
Betadine.
2. Polyethylene spacer exchange for an LCCK 14 mm poly for the size E
femur and a size 3 tibia.
Hospital course:
84-year-old female with a past medical history of paroxysmal atrial fibrillation on Xarelto, aortic stenosis, hypertension, type 2 diabetes mellitus, and bilateral knee replacements presented with acute onset of left knee pain. Patient was found to
have an acute prosthetic joint infection of her left knee. Patient was seen in conjunction with orthopedic surgery. She underwent debridement and irrigation of her left knee on 05/29/2024.
Patient was seen in conjunction with ID, and treated with IV Ancef. Intraoperative cultures grew out strep salivarius. ID recommends 6 weeks of IV Ancef. Patient did well postoperatively. She had a PICC inserted. She was seen in conjunction
with PT, who recommends home care.
Patient is medically stable and cleared by ID for discharge. She needs to follow-up with her primary care doctor in 1 week, and orthopedic surgery as well as ID in the office in 2-3 weeks.
Disposition: Home with home care
Discharge planning: Required 39 minutes
Discharge Plan
-
Patient Disposition: Home with Home Care
Discharge Diagnosis/Procedures: Ambulatory Dysfunction secondary to Left Knee Pain; Septic arthritis Left knee status post debridement irrigation with polyethylene exchange with Dr. Hackett 05/29
Diet: As tolerated
Activity: As tolerated
Driving Restrictions: Not until seen by your Dr
Activity Restrictions/Additional Instructions:
Continue cefazolin 2 g IV every 8 hours, likely will need 6 weeks.
Follow-up with your primary care doctor in 1 week, and orthopedic surgery as well as infectious disease as directed.
Referrals:
Arun Mena MD [Active] - in two weeks (Call [phone] to schedule post op with Dr. Mena or his one of his PA's, Yariel Tavarez or Abhishek Tobar.)
Uriel Sen DO [Active] - in two to three weeks
Josse Mariee MD [Family Provider] - in less than 1 week
Prescriptions:
New
tramadol 50 mg Tablet
25 mg PO Q6HPRN PRN (Reason: mild to mod pain) Qty: 20 0RF
cefazolin 10 gram Recon Soln
2 g IV Q8H 42 Days Qty: 0 0RF
Continued
metoprolol succinate 25 MG tablet extended release 24 hr
25 mg PO BID
Xarelto 20 MG tablet
20 mg PO DAILY
calcium polycarbophil [Fiber-Tabs] 625 MG tablet
625 mg PO DAILY
losartan 50 mg Tablet
50 mg PO BID
therapeutic multivitamin Tablet
1 tab PO DAILY
acetaminophen 650 mg Tablet Extended Release
1,300 mg PO Q12H
melatonin 10 mg Tablet
10 mg PO HS
Jardiance 10 mg Tablet
10 mg PO DAILY
Discharge Orders:
Discharge Patient (As Directed); Ordered 06/02/24
Ordered By: Ganga Napoles
Discharge Date and Time
Discharge Date/Time: 06/02/24 16:20
Print Language: FRENCH
--- NOTE | 2024-06-02 15:06 | W.PN.ID1 ---
Date of Service
Date of Service: June 02, 2024
Today's Communication
Continue abx.
Assessment / Plan
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
- s/p washout
Leukocytosis resolved
Marked CRP elevation without concomitant ESR elevation.
Paroxysmal A-fib
Aortic stenosis
HTN
Dyslipidemia
DM
Recommendations:
Patient is status post left knee debridement irrigation with polyethylene exchange (05/29/2024).
OR cx: Strep salivarius
Arthrocentesis cultures from 05/27 revealed growth of Streptococcus salivarius.
Continue cefazolin 2 g IV every 8 hours.
Would anticipate a 6-week course of IV antibiotics.
Home infusion sheet placed on paper chart and given to case management.
PICC line placed
Follow-up with Dr. Sen in 2-3 weeks.
����������������������������������������������������������
Chief Complaint
-: Other (Left knee prosthetic joint infection)
Subjective / Review of Systems
Review of Systems: No Fever and No Chills
Vital Signs / Physical Exam
Vital Signs
Vital Signs
Temp Pulse Resp BP Pulse Ox
97.5 F 77 16 151/74 97
06/02/24 07:19 06/02/24 07:19 06/02/24 07:19 06/02/24 07:19 06/02/24 07:19
Physical Exam
Constitutional: No Acute Distress, Comfortable and Non-toxic
Eyes: Sclera Anicteric
Pulmonary: Non Labored
Gastrointestinal: Non Distended
Extremities: Edema; Negative Erythema
Wound: Other (left knee dressed. Minimal strikethrough. No significant erythema.)
Neurological: Awake
Lines: PICC (RUE)
Objective Data
Lab Data
Lab Results
06/02/24 07:34
06/02/24 07:34
ESR 26 mm/hour (0-20) H 05/27/24 07:28
Estimated Creat Clear 67 ml/min 06/02/24 07:34
C-Reactive Protein > 270.00 mg/L (0.0-10.00) H 05/27/24 07:28
Most recent labs reviewed.
Micro Results:
05/29/24 14:30 Anaerobic Culture - Preliminary
Knee - Left Culture pending. Anaerobic cultures are examined after 3
days incubation. Additional information to follow.
05/27/24 10:23 Blood Culture - Final
Blood/Venous No Growth - Final Report
05/27/24 09:33 Blood Culture - Final
Blood/Venous No Growth - Final Report
05/29/24 14:30 Wound Culture - Preliminary
Knee - Left Streptococcus salivarius
Gram Stain - Preliminary
05/27/24 13:14 Body Fluid Culture - Final
Joint Fluid Streptococcus salivarius
Gram Stain - Final
Imaging:
05/27/24 CT left lower extremity with contrast: A left total knee replacement with significant streak artifact was noted. There is a moderate to large joint effusion with slightly thickened enhancing peripheral margin.
05/26/2024 Duplex ultrasound left lower extremity: No evidence of DVT
05/26/2024 X-ray left knee: Left knee arthroplasty seen in position. No cortical fracture, dislocation or focal bony destructive process noted. Film personally viewed.
--- NOTE | 2024-06-02 15:11 | CM ---
Addendum entered by Erin Ya RN 06/02/24 17:02:
[facility] has accepted the patient.

Original Note:
Reviewed the chart notes and spoke with the patient at the bedside. IMM signed and placed on chart. [facility] into educate the patient on self IV administration of abx. Referral for [facility] sent. CM continues to be available to patient/family
and is monitoring medical plan for needs at discharge.
Plan: Discharge to home with VN services.
[2024-06-02 15:55] VITALS: BP 154/75
--- NOTE | 2024-06-04 16:39 | W.PN.UPDATE ---
Update Note
Progress Note Update
With regards to the operative report from 05/29/2024 and the extensive debridement performed, the debridement was excisional removing inflamed synovial tissue and slough and was performed using a 10 blade and a 15 blade knife. The debridement
included skin, subcutaneous tissue, and scar tissue down to bone. The area was approximately 10 inches by 7 inches and 3-4 inches deep.
== END 2024-06-02 16:20 | disposition home health service (06) | DRG 463 ==
LOC: 2 SOUTH 11:22
PROVIDERS: Orthopaedic Surgery; Physician Assistant; Physician Assistant Medical; ADMITTING PHYSICIAN Internal Medicine; ATTENDING PHYSICIAN Family Medicine; CONSULT PHYSICIAN Orthopaedic Surgery; EMERGENCY PHYSICIAN Emergency Medicine; FAMILY PHYSICIAN Internal Medicine; OTHER PHYSICIAN Internal Medicine Infectious Disease
PROC: 0S9D3ZX Drainage of Left Knee Joint, Percutaneous Approach, Diagnostic (ICD-10-PCS; 2024-05-27)
PROC: 0SPD09Z Removal of Liner from Left Knee Joint, Open Approach (ICD-10-PCS; 2024-05-29)
PROC: 0JBP0ZZ Excision of Left Lower Leg Subcutaneous Tissue and Fascia, Open Approach (ICD-10-PCS; 2024-05-29)
PROC: 0SUW09Z Supplement Left Knee Joint, Tibial Surface with Liner, Open Approach (ICD-10-PCS; 2024-05-29)
PROC: 0SBD0ZZ Excision of Left Knee Joint, Open Approach (ICD-10-PCS; 2024-05-29)
DX: T84.54XA Infection and inflammatory reaction due to internal left knee prosthesis, initial encounter (principal); A41.9 Sepsis, unspecified organism; M00.262 Other streptococcal arthritis, left knee; I10 Essential (primary) hypertension; E11.9 Type 2 diabetes mellitus without complications; I35.0 Nonrheumatic aortic (valve) stenosis; E66.09 Other obesity due to excess calories; Z68.36 Body mass index [BMI] 36.0-36.9, adult; B95.4 Other streptococcus as the cause of diseases classified elsewhere; E78.5 Hyperlipidemia, unspecified; D72.829 Elevated white blood cell count, unspecified; Y79.2 Prosthetic and other implants, materials and accessory orthopedic devices associated with adverse incidents; M25.462 Effusion, left knee; M25.562 Pain in left knee; I48.0 Paroxysmal atrial fibrillation; R26.89 Other abnormalities of gait and mobility; Z96.653 Presence of artificial knee joint, bilateral; Z79.01 Long term (current) use of anticoagulants; Z79.84 Long term (current) use of oral hypoglycemic drugs; Z79.899 Other long term (current) drug therapy; Z87.19 Personal history of other diseases of the digestive system; Z87.81 Personal history of (healed) traumatic fracture; Z90.49 Acquired absence of other specified parts of digestive tract; Z90.89 Acquired absence of other organs; Z88.5 Allergy status to narcotic agent
CPT/HCPCS: 71045; 71046; 73560; 73564; 73701; 80048; 82962; 83036; 85025; 85652; 86140; 86850; 86900; 86901; 87015; 87040; 87070; 87075; 87077; 87186; 87205; 87811; 89051; 89060; 93971; 97110; 97116; 97164; 97167; 97168; 97530; 99285; C1776; Q9967

== ENCOUNTER → 2024-09-15 13:51 | Outpatient (REF) | payer OTHER, SELFPAY | LOC: RCS 13:51 | PROVIDERS: ATTENDING PHYSICIAN Internal Medicine Cardiovascular Disease; FAMILY PHYSICIAN Internal Medicine | DX: I10 Essential (primary) hypertension (principal); I48.91 Unspecified atrial fibrillation | CPT/HCPCS: 93306 ==

== ENCOUNTER → 2024-09-22 13:39 | Outpatient (REF) | payer OTHER, SELFPAY ==
[2024-09-22 14:26] LABS: Erythrocyte Sed Rate 8 mm/hour (0-20)
== END ==
LOC: RAD 13:39
PROVIDERS: ATTENDING PHYSICIAN Orthopaedic Surgery Adult Reconstructive Orthopaedic Surgery; FAMILY PHYSICIAN Internal Medicine
DX: Z96.642 Presence of left artificial hip joint (principal)
CPT/HCPCS: 36415; 73700; 85652; 86140

== ENCOUNTER 2024-11-17 13:02 | Outpatient (RCR) | payer OTHER, SELFPAY | END 2024-11-17 23:59 | disposition home or self-care (01) | LOC: RPT 13:02 | PROVIDERS: ATTENDING PHYSICIAN Physical Medicine & Rehabilitation; FAMILY PHYSICIAN Internal Medicine | DX: S70.02XD Contusion of left hip, subsequent encounter (principal); Z73.6 Limitation of activities due to disability; R26.89 Other abnormalities of gait and mobility; M62.81 Muscle weakness (generalized) | CPT/HCPCS: 97010; 97110; 97140; 97162 ==

== ENCOUNTER 2024-12-12 15:05 | Outpatient (RCR) | payer OTHER, SELFPAY | END 2024-12-12 23:59 | disposition home or self-care (01) | LOC: RPT 15:05 | PROVIDERS: ATTENDING PHYSICIAN Physical Medicine & Rehabilitation; FAMILY PHYSICIAN Internal Medicine | DX: S70.02XD Contusion of left hip, subsequent encounter (principal); Z73.6 Limitation of activities due to disability; R26.89 Other abnormalities of gait and mobility; M54.9 Dorsalgia, unspecified; M62.81 Muscle weakness (generalized); R10.30 Lower abdominal pain, unspecified; W19.XXXD Unspecified fall, subsequent encounter | CPT/HCPCS: 97010; 97110; 97140 ==

== ENCOUNTER 2025-01-07 14:51 | Outpatient (RCR) | payer OTHER, SELFPAY | END 2025-01-07 23:59 | disposition home or self-care (01) | LOC: RPT 14:51 | PROVIDERS: ATTENDING PHYSICIAN Physical Medicine & Rehabilitation; FAMILY PHYSICIAN Internal Medicine | DX: S70.02XD Contusion of left hip, subsequent encounter (principal); Z73.6 Limitation of activities due to disability; R26.89 Other abnormalities of gait and mobility; M54.9 Dorsalgia, unspecified; R10.30 Lower abdominal pain, unspecified; W19.XXXD Unspecified fall, subsequent encounter; M62.81 Muscle weakness (generalized) | CPT/HCPCS: 97010; 97110; 97140 ==

== ENCOUNTER 2025-01-20 14:05 | Outpatient (RCR) | payer OTHER, SELFPAY | END 2025-01-21 07:40 | disposition home or self-care (01) | LOC: RPT 14:05 | PROVIDERS: ATTENDING PHYSICIAN Physical Medicine & Rehabilitation; FAMILY PHYSICIAN Internal Medicine | DX: S70.02XD Contusion of left hip, subsequent encounter (principal); Z73.6 Limitation of activities due to disability; R26.89 Other abnormalities of gait and mobility; R10.30 Lower abdominal pain, unspecified; M54.9 Dorsalgia, unspecified; W19.XXXD Unspecified fall, subsequent encounter; M62.81 Muscle weakness (generalized) | CPT/HCPCS: 97110 ==